=== PATIENT | female | born 1950 | race Caucasian/White ===

== ENCOUNTER → 2016-03-24 | Outpatient (CLI) | payer OTHER ==
[~2016-03-24] MED LIST: CALC600T9 PO; CHOL400T PO; COEN10CA5 PO; GLIP2.5T11 PO; LVQ250 PO; MULT-897 PO; OMEP20CA9 PO; VITA100C2 PO
--- NOTE | 2016-03-24 10:21 | DIAGNOSTIC IMAGING REPORT ---
CHEST 2 VIEWS ROUTINE CLINICAL HISTORY: Cough, dyspnea on exertion. COMPARISON STUDY: 12/10/2014 FINDINGS: There is mild elevation of the right hemidiaphragm. There is no lobar consolidation. There are minor basilar atelectatic changes. There are no pleural effusions. There is upper thoracic scoliosis.[ IMPRESSION: No active disease in the chest. Electronically signed by: Cornell Pyle M.D. 03/24/2016 10:19 AM Dictated Date/Time: 03/24/2016 10:18 AM
[2016-03-24 11:06] LABS: BASO % 0.6 %; BASO ABS # 0.05 K/uL (0-0.2); COMPLETE YES; EOS % 4.7 %; HEMATOCRIT 39.8 % (37-47); IG% 0.1 %; LYMPH % 29.1 %; LYMPH ABS # 2.42 K/uL (1.2-3.4); MEAN CELL VOLUME 89.8 fL (80-100); MEAN CORPUSCULAR HEMOGLOBIN 29.3 pg (25-34); MEAN CORPUSCULAR HGB CONC 32.7 g/dl (32-36); MEAN PLATELET VOLUME 9.7 fL (7.4-10.4); MONO % 7.8 %; NEUT % 57.7 %; PLATELET COUNT 401 K/uL (130-400); RED BLOOD COUNT 4.43 M/uL (4.2-5.4); WHITE BLOOD COUNT 8.31 K/uL (4.8-10.8)
[2016-03-24 11:19] LABS: ESTIMATED AVERAGE GLUCOSE 120 mg/dl; HA1C FLAG Normal (Normal)
[2016-03-24 14:08] LABS: ALT/SGPT 23 U/L (12-78); BLOOD UREA NITROGEN 14 mg/dl (7-18); BUN/CREATININE RATIO 15.4 (10-20); CALCIUM 9.5 mg/dl (8.5-10.1); CARBON DIOXIDE 27 mmol/L (21-32); CHLORIDE 104 mmol/L (98-107); CHOLESTEROL 215 mg/dl (0-200); CREATININE 0.92 mg/dl (0.60-1.20); GLUCOSE 95 mg/dl (70-99); POTASSIUM 4.3 mmol/L (3.5-5.1); SODIUM 140 mmol/L (136-145)
[2016-03-24 14:10] LABS: ALB/GLOB RATIO 0.9 (0.9-2); ALKALINE PHOSPHATASE 96 U/L (45-117); AST/SGOT 16 U/L (15-37); CHOLESTEROL/HDL RATIO 4.1; HDL CHOLESTEROL 52 mg/dl; LDL CHOLESTEROL CALCULATED 128 mg/dl; TRIGLYCERIDES 174 mg/dl (0-150); VERY LOW DENSITY LIPOPROT CALC 35 mg/dl
== END | disposition home or self-care (01) ==
LOC: C.RADBC 09:19
PROVIDERS: ATTEND Internal Medicine Geriatric Medicine
DX: R06.09 Other forms of dyspnea (principal); J45.909 Unspecified asthma, uncomplicated; I10 Essential (primary) hypertension; E11.9 Type 2 diabetes mellitus without complications; K76.0 Fatty (change of) liver, not elsewhere classified; E78.5 Hyperlipidemia, unspecified

== ENCOUNTER → 2016-05-06 | Outpatient (CLI) | payer OTHER ==
[2016-05-06 12:50] LABS: HEMATOCRIT 37.6 % (37-47); MEAN CELL VOLUME 87.9 fL (80-100); MEAN CORPUSCULAR HEMOGLOBIN 28.7 pg (25-34); MEAN CORPUSCULAR HGB CONC 32.7 g/dl (32-36); MEAN PLATELET VOLUME 9.6 fL (7.4-10.4); PLATELET COUNT 355 K/uL (130-400); RED BLOOD COUNT 4.28 M/uL (4.2-5.4); WHITE BLOOD COUNT 8.01 K/uL (4.8-10.8)
[2016-05-06 13:10] LABS: ALT/SGPT 23 U/L (12-78); AST/SGOT 13 U/L (15-37); BLOOD UREA NITROGEN 17 mg/dl (7-18); BUN/CREATININE RATIO 17.6 (10-20); CALCIUM 9.1 mg/dl (8.5-10.1); CARBON DIOXIDE 27 mmol/L (21-32); CHLORIDE 107 mmol/L (98-107); CREATININE 0.96 mg/dl (0.60-1.20); GLUCOSE 98 mg/dl (70-99); POTASSIUM 4.2 mmol/L (3.5-5.1); SODIUM 141 mmol/L (136-145)
[2016-05-06 13:13] LABS: ALB/GLOB RATIO 0.9 (0.9-2); ALKALINE PHOSPHATASE 101 U/L (45-117); CHOLESTEROL 146 mg/dl (0-200); HDL CHOLESTEROL 49 mg/dl; LDL CHOLESTEROL CALCULATED 76 mg/dl; TRIGLYCERIDES 105 mg/dl (0-150); VERY LOW DENSITY LIPOPROT CALC 21 mg/dl
== END | disposition home or self-care (01) ==
LOC: C.LABPBG 08:01
PROVIDERS: ATTEND Internal Medicine Gastroenterology
DX: K76.0 Fatty (change of) liver, not elsewhere classified (principal); E78.5 Hyperlipidemia, unspecified

== ENCOUNTER → 2016-05-17 | Outpatient (CLI) | payer OTHER ==
[2016-05-17 16:55] LABS: INR 0.9 (0.9-1.1)
[2016-05-17 16:57] LABS: PLATELET COUNT 377 K/uL (130-400)
[2016-05-17 17:17] LABS: ALKALINE PHOSPHATASE 111 U/L (45-117); ALT/SGPT 23 U/L (12-78); AST/SGOT 15 U/L (15-37)
--- NOTE | 2016-05-24 12:44 | CODING QUERY MEDICAL NECESSITY ---
SUPPORTING DIAGNOSIS NEEDED A supporting diagnosis is required for the test/procedure performed on this patient in order for us to be reimbursed by the patient's insurance. Please provide a supporting diagnosis for the following test/procedure listed below next to the test name along with your signature. *If there is no additional diagnosis for this patient that would support the following test/procedure please document that below next to the test/procedure. Test(s)/Procedure(s) that require a supporting diagnosis: * VITAMIN D 25-HYDROXY DIAGNOSIS: * DOS: 05/17/16 Provider Signature: Date: Thank you Sima Velarde Health Information Management Once completed, please kindly fax back to [phone] For questions please call [phone]
== END | disposition home or self-care (01) ==
LOC: C.LABBC 15:28
PROVIDERS: ATTEND Internal Medicine Gastroenterology
DX: K76.0 Fatty (change of) liver, not elsewhere classified (principal); Z68.39 Body mass index [BMI] 39.0-39.9, adult; Z13.820 Encounter for screening for osteoporosis

== ENCOUNTER → 2016-09-16 | Outpatient (CLI) | payer OTHER ==
[2016-09-16 12:54] LABS: BASO % 0.5 %; BASO ABS # 0.04 K/uL (0-0.2); COMPLETE YES; EOS % 3.7 %; HEMATOCRIT 37.8 % (37-47); IG% 0.1 %; LYMPH % 26.1 %; LYMPH ABS # 2.14 K/uL (1.2-3.4); MEAN CELL VOLUME 89.8 fL (80-100); MEAN CORPUSCULAR HGB CONC 31.2 g/dl (32-36); MONO % 6.1 %; NEUT % 63.5 %; PLATELET COUNT 373 K/uL (130-400); RED BLOOD COUNT 4.21 M/uL (4.2-5.4); WHITE BLOOD COUNT 8.19 K/uL (4.8-10.8)
[2016-09-16 13:20] LABS: ALT/SGPT 29 U/L (12-78); AST/SGOT 15 U/L (15-37); BLOOD UREA NITROGEN 11 mg/dl (7-18); BUN/CREATININE RATIO 10.3 (10-20); CALCIUM 8.9 mg/dl (8.5-10.1); CARBON DIOXIDE 25 mmol/L (21-32); CHLORIDE 108 mmol/L (98-107); GLUCOSE 131 mg/dl (70-99); POTASSIUM 3.9 mmol/L (3.5-5.1); SODIUM 141 mmol/L (136-145)
[2016-09-16 13:30] LABS: ALB/GLOB RATIO 0.8 (0.9-2); ALKALINE PHOSPHATASE 87 U/L (45-117)
[2016-09-16 13:59] LABS: ESTIMATED AVERAGE GLUCOSE 131 mg/dl; HA1C FLAG Normal (Normal)
== END | disposition home or self-care (01) ==
LOC: C.LABPBG 07:45
PROVIDERS: ATTEND Internal Medicine Geriatric Medicine
DX: I25.10 Atherosclerotic heart disease of native coronary artery without angina pectoris (principal); E78.5 Hyperlipidemia, unspecified; K76.0 Fatty (change of) liver, not elsewhere classified; I10 Essential (primary) hypertension; E04.2 Nontoxic multinodular goiter; E11.9 Type 2 diabetes mellitus without complications; E55.9 Vitamin D deficiency, unspecified

== ENCOUNTER → 2016-10-26 | Outpatient (CLI) | payer OTHER ==
--- NOTE | 2016-10-27 06:50 | PAP/PSG TECHNICIAN REPORT ---
[facility] [place] Drafter Polysomnogram Report Study name: None Report date: 10/27/2016 Study date: 10/26/2016 Referring Physician: Deysi Anthony PA-C Name: ASHLEY MILLER Interpreting Physician: Everardo Hu M.D. Date of : 1950 [place] Drafter: Joyce Bar RPSGT. Sex: Female Age: 65 Study Type: PSG PAP Weight: 237 lbs Height: 65 years, Height 5' 4.25" BMI: 40.36 Medications: VENTOLIN HFA, LISINOPRIL 20 MG, METFORMIN 500 MG, CALCIUM+D3 600-200 MG/UNIT, VIT D 1000 UNIT Patient History 65 yr-old female here for a CPAP update study. She is currently on a pressure of 6 CMH2O. She has been feeling more tired and fatigued during the day. She is back to assess her pressure settings. She stated that her mask leaks and her upper lip gets under the cushion. Tonight, she is trying the same mask but a size smaller. She uses a Mirage FX Soft edge nasal mask but in a size small for the study. The test was started on room air and 4 CMH2O. ETCO2 testing was not utilized during this study. Room 1 Parameters Monitored NPSG: E1-M2, E2-M1, Fp1-M2, Fp2-M1, F3-M2, F4-M2, F4-M1, C3-M2, C4-M2, C4-M1, O1-M2, O2-M2, O2-M1, T3-M2, T4-M1, P3-M2, P4-M1, CHIN1, CHIN2, HR, EKG, Legs, PFLOW, SNOR, FLOW, CFLOW, Tidal Volume, THOR, ABDO, SpO2, PLTH, CPRESS, ETCO2 Wave, ETCO2, pH Sleep Architecture Sleep Stages Time at Lights Off 8:40:23 PM STAGES Time (min.) TST (%) Time at Lights On 5:46:23 AM Wake 156.0 -- Total Recording Time (TRT) 546.00 min. N1 34.5 9 Total Sleep Period (TSP) 532.5 min. N2 247.5 63 Total Sleep Time (TST) 390.0min. N3 35.0 9 Awake Time 156.0 min. REM 73.0 19 Wake after Sleep Onset 142.5 min. Sleep Efficiency (SE) 71 % Sleep Onset Latency (ASHLEY) 13.5 min. Number of Stage 1 Shifts None Awakenings 29 Stage Changes 103 Number of REM periods 4 REM 73.0 19 REM Latency 127.0 min. NREM 317.0 81 Body Position Analysis Supine Right Left Side Prone Vertical Total Sleep Time (min.) 205.3 71.2 190.7 261.90 0.0 0.0 Total Sleep Time (%) 33% 18% 49% 67 0% N/A% Total Sleep Time REM (min.) 31.0 0.0 42.0 None 0.0 0.0 Total Sleep Time NREM (min.) 97.1 71.2 148.7 None 0.0 0.0 Intermittent Wake (min.) 77.2 9.7 69.0 None 0.0 0.0 Total Sleep Period (%) 36% None None None None None Arousals Myoclonus (PLM) * Events Count Index Events Count Index Spontaneous 17 3 Events Awake (PLMW) 203 78.1 Respiratory 2 0.3 Events Asleep w/ Arousal (PLMA) 26 4.0 PLM 25 4 Events Asleep w/o Arousal (PLMS) 183 28.2 Snoring 2 0 Total Asleep 209 32.2 Total 46 7 Total 412 45 Respiratory Analysis * CA OA MA CH H RERA Total Count 0 0 0 0 12 0 12 Index 0.0 0.0 0.0 0 1.8 0 1.8 Mean Duration 0.0 0.0 0.0 0.00 18.5 0.0 18.5 Longest Duration 0.0 0.0 0.0 0.00 0.0 0.0 24.3 Respiratory Event Summary Total Supine ~Supine Right Left Prone REM NREM Apneas Count 0 0 0 0 0 N/A 0 0 Index 0.0 0 0 0.0 0.0 N/A 0 0 Hypopneas (4% Desat) Count 12 11 1 1 0 N/A 11 1 Index 1.8 5.2 0 0.8 0.0 N/A 9.0 0.2 Apneas & All Hypopneas Count 12 11 1 1 0 N/A 11 1 Index 1.8 5 0 1 0 N/A 9.0 0.2 Respiratory Events (Per Diem Rn+All Hyp+RERA) Count 12 11 1 1 0 N/A 11 1 Index 1.8 5 0 0.8 0.0 N/A 9.0 0.2 Respiratory Related Arousal Count 2 11 0 0 0 N/A 2 0 Index 0.3 1 0 0 0 N/A 2 0 Snoring Analysis Supine Right Left Prone REM NREM Total Snore duration 3.7 min Snores count 41 160 9 N/A 6 204 210 Snore mean duration 1.1 Sec Snores index 19 135 3 N/A 4.9 38.6 32.3 TST with snoring (%) 1.0% Desaturation Event Summary: Minimum %SpO2 Event Count Mean/Min/Max Duration(sec.) Desaturation Index % Time In Bed > 90 16 22.6 / 11.0 / 60.0 2.1 84.8 86 - 90 7 17.0 / 11.0 / 29.3 5.1 15.2 81 - 85 0 N/A 0.0 0.0 76 - 80 0 N/A 0.0 0.0 71 - 75 0 N/A 0.0 0.0 66 - 70 0 N/A 0.0 0.0 61 - 65 0 N/A 0.0 0.0 56 - 60 0 N/A 0.0 0.0 51 - 55 0 N/A 0.0 0.0 < 50 0 N/A 0.0 0.0 Total REM NREM Awake <50% 0.0 min. 0.0 min. 0.0 min. 0.0 min. 51 - 60% 0.0 min. 0.0 min. 0.0 min. 0.0 min. 61 - 70% 0.0 min. 0.0 min. 0.0 min. 0.0 min. 71 - 80% 0.0 min. 0.0 min. 0.0 min. 0.0 min. 81 - 90% 82.0 min. 18.4 min. 56.5 min. 7.2 min. 91 - 100% 458.4 min. 54.6 min. 260.5 min. 143.4 min. Average 92 91 91 92 Minimum SpO2 85 85 87 88 Desaturation Event Index 1.8 8.2 0.4 1.5 # Desat. Events below 89% 10 10 N/A 0 Time(%) with Saturation below 89% 0.6 0.5 0.1 0.0 Time(min.) with Saturation below 89% 3.0 2.5 0.4 0.1 Time (mins) REM (mins) NREM (mins) % of TST SpO2 Below 90% 11 10 N1 2.8 SpO2 Below 88% 3 0 0 0 Heart Rate Analysis Min (bpm) Max (bpm) Average (bpm) Awake 53 127 67 NREM 51 82 62 REM 53 77 63 Overall 51 82 62 Supplemental O2 Values Minimum O2 level: None Value Start Time End Time [place] Drafter Comments Ms. Miller slept in the right, left, and supine positions. No cardiac arrhythmias were noted. PLMs were noted. No bruxism noted. CPAP was initiated at +4 CMH2O and up-titrated to a level of +6 CMH2O, Cflex 2 which nearly eliminated all respiratory events and snoring. A Mirage FX Soft edge nasal mask size small from [employer] was used during titration. This is a size smaller than her current standard size Mirage FX. She awoke to use the restroom one time during the night. Ms. Miller stated that she slept about the same as usual. The final report will be interpreted and signed by a sleep physician. The completed physician report will then be placed in the patient medical record. Therapy Event: Therapy (cm H20) 4 6 Total Time at Pressure (min.) 191.0 355.0 TST at Pressure (min.) 141.0 249.0 # Periods 1 1 Sleep Onset (min.) 13.5 0.0 REM Onset (min.) 140.5 136.0 Sleep Efficiency % 73 70 Wakefulness (%) 26.2 29.9 Wakefulness (min.) 50.0 106.0 NREM 1 (%) 5.8 6.6 NREM 1 (min.) 11.0 23.5 NREM 2 (%) 43.4 46.3 NREM 2 (min.) 83.0 164.5 NREM 3 (%) 9.9 4.5 NREM 3 (min.) 19.0 16.0 REM (%) 14.7 12.7 REM (min.) 28.0 45.0 # Arousals 14 32 Arousal Index 6.0 7.7 # Snore 34 176 Snore Index 14.5 42.4 AHI 3.8 0.7 AHI Supine 6.0 3.1 AHI Non-Supine 0.0 0.3 NREM AHI 0.0 0.3 REM AHI 19.3 2.7 RDI 3.8 0.7 # Obstructive 0 0 # Central Ap 0 0 # Mixed 0 0 # Hypopneas 9 3 RERAS 0 0 Total Respiratory Events 9 3 Time Below SpO2 89.00% (min.) 2.9 0.0 Mean NREM SpO2 (%) 91 92 Mean REM SpO2 (%) 90 92 Mean Sleep SpO2 (%) 91 92 Min NREM SpO2 (%) 87 89 Min REM SpO2 (%) 85 89 Position Supine (min.) 89.5 38.6 Position Non-supine (min.) 51.5 210.4 LM Index Sleep 50.6 21.7 LM Index NREM 61.6 25.0 LM Index REM 6.4 6.7 Mean Heart Rate (bpm) 67 59 Min Heart Rate (bpm) 60 51
--- NOTE | 2016-10-27 13:22 | POLYSOMNOGRAPH REPORT ---
CLINICAL DATA: A 65-year-old female with a BMI of 40.4, referred by Deysi Anthony PA-C and Dr. George for a CPAP titration update. She is currently on CPAP 6 cm of water pressure, but has been feeling more tired and fatigued during the day. She states that her mask leaks and her upper lip gets under the cushion. She uses a Mirage FX soft edge nasal mask. SLEEP ARCHITECTURE: Total recording time was 546 minutes. Total sleep period was 532.5 minutes. Total sleep time was 390 minutes, divided between 317 minutes of non-REM sleep and 73 minutes of REM sleep. Sleep onset latency was 13.5 minutes. REM latency was 127 minutes. Sleep efficiency was 71%. Wake after sleep onset was 142.5 minutes. Sleep consisted of stage N1 9%, stage N2 63%, stage N3 9%, and REM 19%. AROUSAL DATA: 46 arousals were recorded for an index of 7 per hour. 25 were due to PLMs. PLM DATA: Moderate PLMD was seen. There were 209 limb movements during sleep noted for an index of 32.2 per hour with arousal index of 4 per hour. RESPIRATORY DATA: The AHI was 1.8. There were 12 hypopneic episodes with mean duration of 18.5 seconds. OXIMETRY DATA: Transient hypoxemia seen. Oxygen rose mary was 85%. Mean saturation was 92%. Time below 88% was 3 minutes. EKG: Heart rates ranged from 51-82 beats per minute. No arrhythmias were noted. USER EXPERIENCE RESEARCHER'S COMMENTS: The patient slept in the right, left, and supine positions. No cardiac arrhythmias were noted. No bruxism was noted. She was started on CPAP and titrated up to final pressure setting of 6 cm of water pressure, C-Flex setting 2. At her final pressure setting, she slept for 249 minutes with an AHI of 0.7. She did use a Mirage FX soft edge nasal mask size small from [employer], which is smaller than her current standard size Mirage FX. She did better with the smaller mask. She did have frequent PLMs which caused arousal through the night. IMPRESSION: 1. Obstructive sleep apnea corrected with CPAP 6 cm of water pressure, C-Flex setting #2, utilizing a Mirage FX soft edge nasal mask size small from [employer]. 2. Moderate periodic limb movement disorder, possibly causing sleep disruption. RECOMMENDATIONS: The patient should be continued on CPAP at the above noted settings with the above noted interface. Evaluation for possible causes for PLMD and possible treatment may be of benefit if felt to be clinically significant. MTDD
== END | disposition home or self-care (01) ==
LOC: C.NEUR 20:00
PROVIDERS: ATTEND Internal Medicine Geriatric Medicine
DX: G47.33 Obstructive sleep apnea (adult) (pediatric) (principal)

== ENCOUNTER → 2017-03-15 | Outpatient (CLI) | payer OTHER ==
[2017-03-15 12:57] LABS: HEMOGLOBIN A1C 5.8 % (4.5-5.6)
[2017-03-15 12:58] LABS: ALBUMIN 3.9 gm/dl (3.4-5.0); ALKALINE PHOSPHATASE 90 U/L (45-117); ALT/SGPT 29 U/L (12-78); AST/SGOT 18 U/L (15-37); BLOOD UREA NITROGEN 15 mg/dl (7-18); CALCIUM 9.4 mg/dl (8.5-10.1); CARBON DIOXIDE 28 mmol/L (21-32); CHOLESTEROL 197 mg/dl (0-200); CREATININE 0.98 mg/dl (0.60-1.20); GLUCOSE 94 mg/dl (70-99); LDL CHOLESTEROL CALCULATED 121 mg/dl; POTASSIUM 4.2 mmol/L (3.5-5.1); SODIUM 137 mmol/L (136-145); TOTAL PROTEIN 7.6 gm/dl (6.4-8.2)
== END | disposition home or self-care (01) ==
LOC: C.LABPBG 07:24
PROVIDERS: ATTEND Internal Medicine Geriatric Medicine
DX: E55.9 Vitamin D deficiency, unspecified (principal); I10 Essential (primary) hypertension; E11.9 Type 2 diabetes mellitus without complications; K76.0 Fatty (change of) liver, not elsewhere classified; E78.5 Hyperlipidemia, unspecified

== ENCOUNTER → 2017-04-26 | Outpatient (CLI) | payer OTHER | END | disposition home or self-care (01) | LOC: C.MAMM 14:25 | PROVIDERS: ATTEND Family Medicine | DX: Z78.0 Asymptomatic menopausal state (principal); M85.88 Other specified disorders of bone density and structure, other site; M85.851 Other specified disorders of bone density and structure, right thigh; M85.852 Other specified disorders of bone density and structure, left thigh ==

== ENCOUNTER 2017-10-18 16:16 | Emergency (ER) | payer OTHER ==
[~2017-10-18] VITALS: Ht 165.1 cm; Wt 106.3 kg
[~2017-10-18 16:16] MED LIST changes: -MULT-897 PO
[2017-10-18 16:22] VITALS: TEMP 36.7; Ht 165.1 cm; Wt 106.3 kg
[2017-10-18] MEDS ORDERED: SODIUM CHLORIDE 0.9% 500ML 500 ML IV STA (16:59)
[2017-10-18] MEDS ORDERED: GI COCKTAIL PO STA (17:05)
[2017-10-18 17:14] VITALS: O2SAT 97
[2017-10-18] MEDS ORDERED: FAMOTIDINE 20 MG TAB PO ONE (17:15)
[2017-10-18 17:24] LABS: BASO % 0.3 %; BASO ABS # 0.03 K/uL (0-0.2); EOS ABS # 0.29 K/uL (0-0.5); HEMATOCRIT 38.8 % (37-47); HEMOGLOBIN 12.2 g/dL (12.0-16.0); IG# 0.01 K/uL (0.00-0.02); LYMPH % 29.6 %; LYMPH ABS # 2.87 K/uL (1.2-3.4); MEAN CELL VOLUME 88.4 fL (80-100); MEAN CORPUSCULAR HEMOGLOBIN 27.8 pg (25-34); MEAN CORPUSCULAR HGB CONC 31.4 g/dl (32-36); MEAN PLATELET VOLUME 9.6 fL (7.4-10.4); MONO % 5.9 %; MONO ABS # 0.57 K/uL (0.11-0.59); NEUT % 61.1 %; NEUT ABS # 5.93 K/uL (1.4-6.5); PLATELET COUNT 363 K/uL (130-400); RED CELL DISTRIBUTION WIDTH CV 14.8 % (11.5-14.5); RED CELL DISTRIBUTION WIDTH SD 47.5 fL (36.4-46.3)
[2017-10-18] MEDS ORDERED: ALUMINUM/MAGNESIUM SUSP 30 ML UDC ONE (17:26)
[2017-10-18] MEDS ORDERED: LIDOCAINE HCL 2% VISC SOLN 20 ML UDC ONE (17:26)
[2017-10-18] MEDS ORDERED: LISI-725 PO (17:29)
[2017-10-18] MEDS ORDERED: CALC-354 PO (17:29)
[2017-10-18] MEDS ORDERED: METF1TAB85 PO (17:29)
--- NOTE | 2017-10-18 17:31 | EMERGENCY ROOM VISIT NOTE ---
History Report prepared by Bryan: Scott Ruelas Under the Supervision of: Dr. Flaquito Story M.D. First contact with patient: 16:57 Chief Complaint: CHEST PAIN Stated Complaint: CHEST PAINS Nursing Triage Summary: Patient ambulatory to triage with an upright and steady gait, states "Around 0800 this morning, I started having dizziness and feeling like something was sitting on the center of my chest. I have some pressure in the left shoulder blade as well. I got really cold. My house was really hot though. I can't take ASA because I am allergic to it. I waited all day to come." History of Present Illness The patient is a 66 year old female who presents to the Emergency Room with complaints of constant chest discomfort in the sternal region beginning this morning at 8 AM. The patient reports that she was cooking at this time. She states that she is "not short of breath, but it is hard to breathe." She describes the discomfort as if somebody is sitting on her. She states that the discomfort stays in the same place. She denies nausea. The patient reports that her symptoms have improved from this morning. She notes a history of these symptoms, stating that the last episode was months ago. She notes that she never came for evaluation. She reports a history of reflux, but notes that her current symptoms feel different. She denies a history of heart attack, but states that her uncle had a heart attack in his 50s. She states that she does not take blood thinners and does not smoke. She denies a history of cancer. She notes that she takes Metformin for diabetes. The patient denies recent travel or surgeries. Source of History: patient Onset: 8 AM this morning Position: chest Quality: other (as if "someone is sitting on top of her") Timing: constant Associated Symptoms: No nausea Review of Systems See HPI for pertinent positives and negatives. A total of ten systems were reviewed and were otherwise negative. Past Medical & Surgical Medical Problems: (1) Asthma (2) Bronchitis (3) GERD (gastroesophageal reflux disease) (4) Hypertension Family History Heart attack Hypertension Social History Smoking Status: Never Smoker Alcohol Use: none Drug Use: none Marital Status: Housing Status: lives with family Occupation Status: employed Current/Historical Medications Scheduled Calcium Carbonate-Cholecalcife (Caltrate 600+D), 1 TAB PO DAILY Famotidine (Pepcid), 20 MG PO BID Lisinopril (Zestril), 20 MG PO QPM Metformin Hcl (Metformin Hcl Er), 500 MG PO DAILY Multiple Vitamin (One Daily), 1 TAB PO DAILY Allergies Coded Allergies: Aspirin (Unverified Allergy, Severe, "CAN'T BREATHE", 12/08/14) Amoxicillin (Verified Allergy, Unknown, Unknown, 10/18/17) PT cannot remember the reaction Clavulanic Acid (Verified Allergy, Unknown, Unknown, 10/18/17) PT cannot remember the reaction Physical Exam Vital Signs Date Time Temp Pulse Resp B/P (MAP) Pulse Ox O2 Delivery O2 Flow Rate FiO2 10/18/17 19:27 75 118/83 96 10/18/17 19:00 126/79 10/18/17 18:58 70 15 96 10/18/17 18:31 121/75 10/18/17 18:28 71 14 99 10/18/17 18:00 120/75 10/18/17 17:57 78 16 94 10/18/17 17:42 74 10/18/17 17:32 80 23 119/80 94 10/18/17 17:21 66 15 123/80 97 Room Air 10/18/17 17:14 97 Room Air 10/18/17 16:22 36.7 81 20 144/76 97 Room Air 10/18/17 16:22 97 Room Air Physical Exam GENERAL: Awake, alert, in no distress HENT: Normocephalic, atraumatic. Mucous membranes are dry. EYES: Normal conjunctiva. Sclera non-icteric. NECK: Supple. No nuchal rigidity. FROM. No JVD. RESPIRATORY: Clear to auscultation. CARDIAC: Regular rate, normal rhythm. Extremities warm and well perfused. Pulses equal. ABDOMEN: Soft, non-distended. Mild epigastric discomfort without discrete tenderness. No rebound or guarding. No masses. RECTAL: Deferred. MUSCULOSKELETAL: Chest examination reveals no tenderness. The back is symmetrical on inspection without obvious abnormality. There is no CVA tenderness to palpation. No joint edema. LOWER EXTREMITIES: Calves are equal size bilaterally and non-tender. No edema. No discoloration. NEURO: Normal sensorium. No sensory or motor deficits noted. SKIN: No rash or jaundice noted. Medical Decision & Procedures ER Provider Diagnostic Interpretation: Radiology results as stated below per my review and radiologist interpretation: CHEST ONE VIEW PORTABLE CLINICAL HISTORY: 66 years-old Female presenting with CHEST PAIN. TECHNIQUE: Portable upright AP view of the chest was obtained. COMPARISON: 03/24/2016. FINDINGS: Cardiomediastinal silhouette normal. Chronic elevation of the right hemidiaphragm. Bandlike opacity in the left midlung. No focal opacity. No large effusion or pneumothorax. Osseous structures normal. Upper abdomen normal. IMPRESSION: 1. Limited atelectasis or scarring in the left midlung. Otherwise no acute cardiopulmonary disease. Electronically signed by: Leonard Gauthier M.D. 10/18/2017 6:02 PM Dictated Date/Time: 10/18/2017 6:01 PM Laboratory Results 10/18/17 17:10 Red Blood Count 4.39, Mean Corpuscular Volume 88.4, Mean Corpuscular Hemoglobin 27.8, Mean Corpuscular Hemoglobin Concent 31.4, Mean Platelet Volume 9.6, Neutrophils (%) (Auto) 61.1, Lymphocytes (%) (Auto) 29.6, Monocytes (%) (Auto) 5.9, Eosinophils (%) (Auto) 3.0, Basophils (%) (Auto) 0.3, Neutrophils # (Auto) 5.93, Lymphocytes # (Auto) 2.87, Monocytes # (Auto) 0.57, Eosinophils # (Auto) 0.29, Basophils # (Auto) 0.03 10/18/17 17:10 Test 10/18/17 17:10 White Blood Count 9.70 K/uL (4.8-10.8) Red Blood Count 4.39 M/uL (4.2-5.4) Hemoglobin 12.2 g/dL (12.0-16.0) Hematocrit 38.8 % (37-47) Mean Corpuscular Volume 88.4 fL (80-100) Mean Corpuscular Hemoglobin 27.8 pg (25-34) Mean Corpuscular Hemoglobin Concent 31.4 g/dl (32-36) Platelet Count 363 K/uL (130-400) Mean Platelet Volume 9.6 fL (7.4-10.4) Neutrophils (%) (Auto) 61.1 % Lymphocytes (%) (Auto) 29.6 % Monocytes (%) (Auto) 5.9 % Eosinophils (%) (Auto) 3.0 % Basophils (%) (Auto) 0.3 % Neutrophils # (Auto) 5.93 K/uL (1.4-6.5) Lymphocytes # (Auto) 2.87 K/uL (1.2-3.4) Monocytes # (Auto) 0.57 K/uL (0.11-0.59) Eosinophils # (Auto) 0.29 K/uL (0-0.5) Basophils # (Auto) 0.03 K/uL (0-0.2) RDW Standard Deviation 47.5 fL (36.4-46.3) RDW Coefficient of Variation 14.8 % (11.5-14.5) Immature Granulocyte % (Auto) 0.1 % Immature Granulocyte # (Auto) 0.01 K/uL (0.00-0.02) Anion Gap 8.0 mmol/L (3-11) Est Creatinine Clear Calc Drug Dose 65.1 ml/min Estimated GFR () 65.6 Estimated GFR (Non- 56.6 BUN/Creatinine Ratio 13.7 (10-20) Calcium Level 9.2 mg/dl (8.5-10.1) Magnesium Level 2.0 mg/dl (1.8-2.4) Total Bilirubin 0.4 mg/dl (0.2-1) Direct Bilirubin 0.1 mg/dl (0-0.2) Aspartate Amino Transf (AST/SGOT) 16 U/L (15-37) Alanine Aminotransferase (ALT/SGPT) 32 U/L (12-78) Alkaline Phosphatase 101 U/L (45-117) Troponin I < 0.015 ng/ml (0-0.045) Total Protein 8.1 gm/dl (6.4-8.2) Albumin 3.7 gm/dl (3.4-5.0) Lipase 124 U/L (73-393) Laboratory results reviewed by me Medications Administered Medications (Trade) Dose Ordered Sig/Gina Route Start Time Stop Time Status Last Admin Dose Admin Sodium Chloride 500 ml @ 999 mls/hr Q31M STAT IV 10/18/17 16:59 10/18/17 17:29 DC 10/18/17 17:24 999 MLS/HR Famotidine (Pepcid Tab) 20 mg NOW ONCE PO 8/7/18 17:15 10/18/17 17:16 DC 10/18/17 17:28 20 MG Lidocaine HCl (Viscous Lidocaine 2% Soln) 20 ml STK-MED ONCE .ROUTE 10/18/17 17:26 10/18/17 17:27 DC 10/18/17 17:28 10 ML Al Hydroxide/Mg Hydroxide (Maalox Susp) 30 ml STK-MED ONCE .ROUTE 10/18/17 17:26 10/18/17 17:27 DC 10/18/17 17:28 30 ML ECG Per My Interpretation Indication: chest pain Rate (beats per minute): 83 Rhythm: sinus rhythm Findings: no acute ischemic change, other (normal axis. Incomplete RBBB.) ED Course 1657: The patient was evaluated in room C12B. A complete history and physical exam was performed. 1835: I reevaluated the patient, who is feeling better. Discussed results and discharge instructions: she verbalized understanding and agreement. The patient is ready for discharge. Medical Decision I reviewed the patient's past medical history, medications, and the nursing notes as described above. Differential diagnosis: Etiologies such as cardiac ischemia, aortic dissection, pulmonary embolism, pneumonia, pneumothorax, musculoskeletal, infections, pericarditis, myocarditis , esophageal rupture, gastrointestinal, as well as others were entertained. The patient is a 66-year-old woman with a past medical history of diabetes who presents emergency department with substernal chest pain that feels like a pressure with associated hardness to breathe but denied shortness of breath since 9 AM this morning that has been constant per hpi. On arrival the patient is no acute distress, afebrile stable vital signs. On exam the patient has mild epigastric discomfort without discrete tenderness. EKG is unremarkable with incomplete right bundle branch block otherwise no acute ischemia. WBC within normal limits. Chemistry unremarkable. Troponin negative in setting of greater than 6 hours of constant symptoms making ACS unlikely. Chest x-ray negative. No tachycardia or hypoxia making PE not likely. Not positional making pericarditis unlikely. Denies any tearing pain and has equal pulses making dissection unlikely. Patient with complete resolution of symptoms after Pepcid and GI cocktail. The patient's history of reflux symptoms likely related to the same versus gastritis/esophagitis. Plan for PCP follow-up. Findings and plan for follow-up reviewed with patient. Patient agreeable and d/c 'd per discharge instructions. Medication Reconcilliation Current Medication List: was personally reviewed by me Blood Pressure Screening Patient's blood pressure: Normal blood pressure Blood pressure disposition: Did not require urgent referral Impression Primary Impression: Substernal precordial chest pain Additional Impression: Chest pain due to GERD Scribe Attestation The scribe's documentation has been prepared under my direction and personally reviewed by me in its entirety. I confirm that the note above accurately reflects all work, treatment, procedures, and medical decision making performed by me. Departure Information Dispostion Home / Self-Care Prescriptions Famotidine (PEPCID) 20 Mg Tab 20 MG PO BID for 7 Days, #14 TAB Prov: Flaquito Story M.D. 10/18/17 Referrals Sarahi Laguna DO (PCP) Forms Call Back Authorization, HOME CARE DOCUMENTATION FORM, IMPORTANT VISIT INFORMATION Patient Instructions ED Chest Pain Atypical Unkn Cause, ED GERD, ED Gastritis, [facility] Additional Instructions Please follow up with your primary care physician in the next 1-3 days for re- evaluation. Your symptoms today are most likely related to acid reflux or possible gastritis /esophagitis. Otherwise, your exam, EKG, chest xray, and lab results did not show signs of an emergent condition at this time. Pepcid as directed for recurrence of symptoms/GI upset/acid reduction. Mylanta or Tums for additional acid relief. Drink plenty of fluids to ensure hydration. Return to the emergency department for worsening symptoms as described in the accompanying instructions. Problem Qualifiers
[2017-10-18 17:55] LABS: ALBUMIN 3.7 gm/dl (3.4-5.0); ALKALINE PHOSPHATASE 101 U/L (45-117); ALT/SGPT 32 U/L (12-78); AST/SGOT 16 U/L (15-37); BLOOD UREA NITROGEN 14 mg/dl (7-18); CALCIUM 9.2 mg/dl (8.5-10.1); CARBON DIOXIDE 26 mmol/L (21-32); CREATININE 1.03 mg/dl (0.60-1.20); GLUCOSE 117 mg/dl (70-99); LIPASE 124 U/L (73-393); SODIUM 138 mmol/L (136-145); TOTAL PROTEIN 8.1 gm/dl (6.4-8.2)
--- NOTE | 2017-10-18 18:03 | DIAGNOSTIC IMAGING REPORT ---
CHEST ONE VIEW PORTABLE CLINICAL HISTORY: 66 years-old Female presenting with CHEST PAIN. TECHNIQUE: Portable upright AP view of the chest was obtained. COMPARISON: 03/24/2016. FINDINGS: Cardiomediastinal silhouette normal. Chronic elevation of the right hemidiaphragm. Bandlike opacity in the left midlung. No focal opacity. No large effusion or pneumothorax. Osseous structures normal. Upper abdomen normal. IMPRESSION: 1. Limited atelectasis or scarring in the left midlung. Otherwise no acute cardiopulmonary disease. Electronically signed by: Leonard Gauthier M.D. 10/18/2017 6:02 PM Dictated Date/Time: 10/18/2017 6:01 PM
[2017-10-18] MEDS ORDERED: FAMO20TA9 PO (18:37)
[2017-10-18 19:27] VITALS: BP 118/83; PULSE 75; O2SAT 96
[2017-10-18] MEDS ORDERED: MULT-897 PO (19:48)
== END 2017-10-18 19:24 | disposition home or self-care (01) ==
LOC: C.EDB 16:18 → C.EDC 19:24
DX: K21.9 Gastro-esophageal reflux disease without esophagitis (principal); E11.9 Type 2 diabetes mellitus without complications; J45.909 Unspecified asthma, uncomplicated; I10 Essential (primary) hypertension; Z82.49 Family history of ischemic heart disease and other diseases of the circulatory system; Z79.899 Other long term (current) drug therapy; Z88.2 Allergy status to sulfonamides; Z88.1 Allergy status to other antibiotic agents; Z88.8 Allergy status to other drugs, medicaments and biological substances

== ENCOUNTER 2019-03-15 10:34 | Inpatient (IN) ==
[2019-03-15] MEDS ORDERED: MAGNESIUM SULFATE / D5W 1 GM/100 ML BAG IV ONE (10:51)
[2019-03-15] MEDS ORDERED: ALBUT/IPRATROP 3MG/0.5MG NEB 3 ML VIAL INH STA (10:51)
[2019-03-15] MEDS ORDERED: methylPREDNISolone 125 MG/2 ML VIAL IV STA (10:53)
[2019-03-15 11:43] LABS: Basophils # (auto) 0.03 K/uL (0-0.2); Basophils % (auto) 0.2 %; Eosinophils # (auto) 0.03 K/uL (0-0.5); Eosinophils % (auto) 0.2 %; Hematocrit (blood only) 39.1 % (37-47); Hemoglobin 12.1 g/dL (12.0-16.0); Immature Granulocytes # (auto) 0.04 K/uL (0.00-0.02); Immature Granulocytes % (auto) 0.3 %; Lymphocytes # (auto) 1.38 K/uL (1.2-3.4); Lymphocytes % (auto) 9.7 %; Mean Corpuscular Hemoglobin 27.8 pg (25-34); Mean Corpuscular Hgb Conc 30.9 g/dL (32-36); Mean Corpuscular Volume 89.9 fL (80-100); Mean Platelet Volume 9.1 fL (7.4-10.4); Monocytes # (auto) 1.14 K/uL (0.11-0.59); Neutrophils # (auto) 11.64 K/uL (1.4-6.5); Neutrophils % (auto) 81.6 %; Platelet Count 409 K/uL (130-400); RDW Coefficient of Variation 15.1 % (11.5-14.5); Red Blood Count 4.35 M/uL (4.2-5.4); White Blood Count 14.26 K/uL (4.8-10.8)
[2019-03-15 11:53] LABS: Partial Thromboplastin Ratio 0.8; Partial Thromboplastin Time 21.7 Seconds (21.0-31.0); Prothrombin Time 9.8 Seconds (9.0-12.0)
[2019-03-15 11:54] LABS: Alanine Aminotransferase 39 U/L (12-78); Albumin Level 3.7 gm/dl (3.4-5.0); Aspartate Aminotransferase 24 U/L (15-37); BUN Creatinine Ratio 14.4 (10-20); Blood Urea Nitrogen 17 mg/dl (7-18); Calcium 9.5 mg/dl (8.5-10.1); Carbon Dioxide 26 mmol/L (21-32); Chloride 103 mmol/L (98-107); Creatinine Clr Calc Pharmacy 53.9 ml/min; Est GFR (African American) 55.4; Est GFR (Non-African American) 47.8; Glucose 151 mg/dl (70-99); Potassium 3.6 mmol/L (3.5-5.1); Sodium 138 mmol/L (136-145)
[2019-03-15 11:59] LABS: Albumin Globulin Ratio 0.8 (0.9-2); Alkaline Phosphatase 93 U/L (45-117); Bilirubin,Total 0.4 mg/dl (0.2-1); Globulin 4.6 gm/dl (2.5-4.0); Total Protein 8.3 gm/dl (6.4-8.2); Troponin I < 0.015 ng/ml (0-0.045)
--- NOTE | 2019-03-15 13:57 | XRay Report ---
XR chest 2V PA/lateral CLINICAL HISTORY: Cough. Evaluate for pneumonia. COMPARISON STUDY: Chest radiograph March 02, 2019. FINDINGS: Mild left lung airspace opacities have developed. There is no pneumothorax or pleural effus ion. There is no evidence for pulmonary edema. Cardiomediastinal silhouette is stable. IMPRESSION: Interval development of mild left lung airspace opacities which favor an infectious proc ess. ACT 112: Negative or not required by law. Electronically signed by: Romeo Almendarez M.D. 03/15/2019 1:55 PM
[2019-03-15] MEDS ORDERED: LEVOFLOXACIN/D5W 750 MG/150 ML BAG IV STA (14:05)
--- NOTE | 2019-03-15 17:34 | Emergency Department Note ---
Entered by Danii Lambert acting as a scribe for Kehinde Vincent MD History of Present Illness General Chief complaint: Shortness of Breath/Dyspnea Stated complaint: SOB,COUGH Time Seen by Provider: 03/15/19 10:45 Source: patient History of Present Illness Onset (ago): day(s) 5 Location: chest Pain Consistency: + other (persistent) Maximum Pain Intensity: 0 Quality: + other (shortness of breath) Relieved By: not by medication (doxycycline; steroids; nebulizer) Associated symptoms: + cough (productive with yellow phlegm) and + other (positive chest and back soreness); no fever/chills and no nausea/vomiting Treatments prior to arrival: other (doxycycline; steroids; nebulizer treatments) The patient is a 68 year old female who presents to the Emergency Room with complaints of persistent shortness of breath that began 5 days prior to arrival. She reports a productive cough with yellow phlegm. She denies fever, nausea, and vomiting. The patient states that she has chest and back soreness from coughing. The patient states that she was seen in the ED on 03/10/19 for this and was diagnosed with bronchitis. She states that she saw primary care and was given doxycycline and steroids but states that her symptoms have not improved since this time. The patient states that she again saw primary care today and was given a nebulizer treatment that did not relieve her symptoms. She states that she has a history of asthma. Home Medications Home Medications Medication Instructions Recorded Confirmed Type calcium carbonate 600 mg (1,500 1 tab PO QAM tab 07/21/18 03/15/19 History mg)-vitamin D3 200 unit tablet cholecalciferol (vitamin D3) 25 1,000 unit PO HS cap 08/18/18 03/15/19 History mcg (1,000 unit) capsule lisinopril 20 mg PO HS 08/25/18 03/15/19 History multivitamin 1 tab PO QAM 08/25/18 03/15/19 History metformin 500 mg tablet,extended 500 mg PO BID #180 tab 12/15/18 03/15/19 Rx release 24 hr benzonatate 200 mg capsule 200 mg PO TID PRN #21 cap 03/12/19 03/15/19 Rx atorvastatin 10 mg PO MOWEFR@2100 03/15/19 03/15/19 History doxycycline monohydrate 100 mg 100 mg PO BID #14 cap 03/15/19 03/15/19 Rx capsule prednisone 10 mg PO QID 03/15/19 03/15/19 History Allergies Allergy/AdvReac Type Severity Reaction Status Date / Time aspirin Allergy Severe "CAN'T Verified 03/15/19 11:57 BREATHE" amoxicillin Allergy Unknown Unknown Verified 03/15/19 11:57 clavulanic acid Allergy Unknown Unknown Verified 03/15/19 11:57 Past Med/Surg History Medical History Anemia (Chronic) reports reason for colonoscopy Ascites (Acute) Blood in stool Coronary artery calcification (Acute) Diverticulosis 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 Dyslipidemia (Acute) GERD (gastroesophageal reflux disease) Hepatic steatosis (Chronic) Hypertension Incomplete right bundle branch block (Chronic) Intractable abdominal pain (Acute) Mild obstructive sleep apnea Morbid obesity (Chronic) Overflow diarrhea Periodic limb movement disorder (PLMD) (Chronic) Polyneuropathy (Chronic) Type 2 diabetes mellitus (Chronic) NIDDM Vitamin D deficiency (Chronic) Surgical History H/O blepharoplasty H/O foot surgery secondary to plantar fascitis H/O rectocele repair History of anesthesia reaction reports sob after previous colonoscopy - had to go to ER - > 10 years ago @ [facility] - cause? denies aspiration History of colonoscopy w/ polypectomy Nausea and vomiting after administration of anesthetic agent Family History Aunt Family history of reaction to anesthesia PONV Breast cancer Grandfather (Paternal) Family history of diabetes mellitus Brother Family history of diabetes mellitus Uncle Myocardial infarction Father COPD (chronic obstructive pulmonary disease) Mother Parkinson disease Social History Preferred Language: Czech Communication Ability: Effective Visual Impairment: No Limitations Hearing Ability: Normal Post Acute Care Nurse Required: No Beliefs That Will Affect Care: None marital status: Current Living Situation: Spouse current occupational status: employed current occupation: [employer] Other Information That Helps Us Care for You: No Feels Safe at Home: Yes Safety Concerns: Feels Safe At This Time Smoking Status: Never smoker Second Hand Exposure: Yes ( A CHILD) ; Hx Alcohol Use: No Hx Substance Use: No Childhood Exposure to Second-Hand Smoke: Yes caffeine: Yes Dental Care, Regularly: Yes Physical Activity Frequency: 5-6 Times per Week Physical Activity Frequency Comment: walk Seatbelt Use: always Sunscreen Use: No Review of Systems See HPI for pertinent positives & negatives. and A total of 10 systems reviewed and were otherwise negative Physical Exam Vital Signs Vital Signs - 24 hr 03/15/19 10:38 03/15/19 11:22 03/15/19 11:33 Temperature 36.8 C Temperature Source Oral Pulse Rate 98 H Pulse Rate [Right Finger] 68 Pulse Rate from SpO2 Sensor Respiratory Rate 20 19 Respiratory Effort / Characteristics Non-Labored Spontaneous Blood Pressure 189/99 H Blood Pressure Mean 129 Pulse Oximetry 96 91 98 Oxygen Delivery Method Room Air Room Air Nebulizer Oxygen Flow Rate Sepsis Recent Fever Within 48 Hours No Sepsis New/Unexplained Change in Mental Status No Sepsis Action Taken by Nursing No Action Required 03/15/19 11:39 03/15/19 11:50 03/15/19 12:00 Temperature Temperature Source Pulse Rate 88 93 H 103 H Pulse Rate [Right Finger] Pulse Rate from SpO2 Sensor 90 93 H 103 H Respiratory Rate 24 16 19 Respiratory Effort / Characteristics Blood Pressure 157/86 H Blood Pressure Mean 103 Pulse Oximetry 99 98 99 Oxygen Delivery Method Nebulizer Oxygen Flow Rate Sepsis Recent Fever Within 48 Hours Sepsis New/Unexplained Change in Mental Status Sepsis Action Taken by Nursing 03/15/19 12:30 03/15/19 12:31 03/15/19 12:32 Temperature Temperature Source Pulse Rate 122 H 117 H 118 H Pulse Rate [Right Finger] Pulse Rate from SpO2 Sensor 121 H 118 H 119 H Respiratory Rate 26 H 20 15 Respiratory Effort / Characteristics Blood Pressure 162/72 H Blood Pressure Mean 109 Pulse Oximetry 93 95 94 Oxygen Delivery Method Oxygen Flow Rate Sepsis Recent Fever Within 48 Hours Sepsis New/Unexplained Change in Mental Status Sepsis Action Taken by Nursing 03/15/19 13:00 03/15/19 13:35 03/15/19 13:37 Temperature Temperature Source Pulse Rate 117 H 116 H Pulse Rate [Right Finger] Pulse Rate from SpO2 Sensor 117 H Respiratory Rate 23 Respiratory Effort / Characteristics Blood Pressure 180/91 H Blood Pressure Mean 127 Pulse Oximetry 92 88 L Oxygen Delivery Method Room Air Oxygen Flow Rate Sepsis Recent Fever Within 48 Hours Sepsis New/Unexplained Change in Mental Status Sepsis Action Taken by Nursing 03/15/19 13:42 03/15/19 13:46 03/15/19 14:00 Temperature Temperature Source Pulse Rate 118 H Pulse Rate [Right Finger] Pulse Rate from SpO2 Sensor 118 H Respiratory Rate 16 Respiratory Effort / Characteristics Blood Pressure Blood Pressure Mean Pulse Oximetry 91 95 92 Oxygen Delivery Method Nasal Cannula Nasal Cannula Oxygen Flow Rate 2 2 Sepsis Recent Fever Within 48 Hours Sepsis New/Unexplained Change in Mental Status Sepsis Action Taken by Nursing 03/15/19 14:01 03/15/19 14:30 03/15/19 14:31 Temperature Temperature Source Pulse Rate 115 H 113 H 115 H Pulse Rate [Right Finger] Pulse Rate from SpO2 Sensor 115 H 114 H 115 H Respiratory Rate 16 17 17 Respiratory Effort / Characteristics Blood Pressure 182/92 H 186/101 H Blood Pressure Mean 126 139 Pulse Oximetry 92 93 93 Oxygen Delivery Method Oxygen Flow Rate Sepsis Recent Fever Within 48 Hours Sepsis New/Unexplained Change in Mental Status Sepsis Action Taken by Nursing 03/15/19 15:00 03/15/19 15:01 03/15/19 15:02 Temperature Temperature Source Pulse Rate 119 H 117 H 113 H Pulse Rate [Right Finger] Pulse Rate from SpO2 Sensor 118 H 115 H 113 H Respiratory Rate 27 H 19 21 Respiratory Effort / Characteristics Blood Pressure 197/107 H Blood Pressure Mean 143 Pulse Oximetry 93 93 93 Oxygen Delivery Method Nasal Cannula Oxygen Flow Rate 2 Sepsis Recent Fever Within 48 Hours Sepsis New/Unexplained Change in Mental Status Sepsis Action Taken by Nursing 03/15/19 15:30 03/15/19 15:31 03/15/19 16:00 Temperature Temperature Source Pulse Rate 111 H 110 H 115 H Pulse Rate [Right Finger] Pulse Rate from SpO2 Sensor 111 H 111 H Respiratory Rate 20 26 H 18 Respiratory Effort / Characteristics Blood Pressure 183/82 H 152/78 H Blood Pressure Mean 107 102 Pulse Oximetry 93 93 Oxygen Delivery Method Nasal Cannula Oxygen Flow Rate 2 Sepsis Recent Fever Within 48 Hours Sepsis New/Unexplained Change in Mental Status Sepsis Action Taken by Nursing 03/15/19 16:01 03/15/19 16:30 03/15/19 17:00 Temperature Temperature Source Pulse Rate 113 H 110 H 108 H Pulse Rate [Right Finger] Pulse Rate from SpO2 Sensor 111 H 108 H Respiratory Rate 22 17 19 Respiratory Effort / Characteristics Blood Pressure 152/78 H 146/72 H 151/76 H Blood Pressure Mean 105 102 90 Pulse Oximetry 93 93 Oxygen Delivery Method Nasal Cannula Oxygen Flow Rate 2 Sepsis Recent Fever Within 48 Hours Sepsis New/Unexplained Change in Mental Status Sepsis Action Taken by Nursing Constitutional: Vital signs reviewed. Eyes: Pupils are equal round reactive to light. Conjunctiva are noninjected. ENT: Pharynx is clear without erythema or exudate. Mucous membranes are moist. Neck supple without meningeal signs. Respiratory: Diffuse wheezing bilaterally. Breath sounds are equal bilaterally. Cardiovascular: Regular rate and rhythm. No rubs or gallops. GI: Soft, nondistended and nontender. Bowel sounds are present. Musculoskeletal: No peripheral edema. No lower extremity tenderness. Integumentary: No cyanosis. Neurological: The patient is awake and alert. No focal deficits. Psychiatric: Normal affect. Course Course 1048: Past medical records reviewed. The patient was evaluated in room C1B. A complete history and physical exam was performed. 1205: Upon reevaluation, the patient is not feeling any better. She is still wheezing. 1352: Upon reevaluation, the patient is still wheezing. Her oxygen saturation dropped and she is now on oxygen. 1407: I discussed the case with Dr. Bai[facility] Hospitalist who accepts the patient for further evaluation. Administered Medications Discontinued Medications Albuterol (Duoneb) 12 ml INH ONE STA Stop: 03/15/19 10:52 Last Admin: 03/15/19 11:20 Dose: 12 ml Documented by: [id number] Magnesium Sulfate/Dextrose (Magnesium Sulfate / D5w) 1 gm in 100 mls @ 100 mls/hr IV ONE ONE Stop: 03/15/19 11:50 Last Infusion: 03/15/19 12:34 Dose: 0 mls/hr Documented by: [id number] Admin: 03/15/19 11:30 Dose: 100 mls/hr Documented by: [id number] Levofloxacin/Dextrose (Levaquin/D5w) 750 mg in 150 mls @ 100 mls/hr IV NOW STA Stop: 03/15/19 15:34 Last Infusion: 03/15/19 15:48 Dose: 0 mls/hr Documented by: [id number] Admin: 03/15/19 14:15 Dose: 100 mls/hr Documented by: [id number] Methylprednisolone (Solumedrol) 60 mg IV NOW STA Stop: 03/15/19 10:54 Last Admin: 03/15/19 11:29 Dose: 60 mg Documented by: [id number] Critical Care Time Critical Care Time: Yes Total Critical Care Time: 35 I have personally spent approximately 35 minutes of critical care time in the direct management of this patient. This includes bedside care, interpretation of diagnostic studies, and testing, discussion with consultants, patient, and family members, and other required patient management activities. This approximately 35 minutes is in excess of all separately billable procedures. Medical Decision Making Differential Diagnosis Differential diagnoses include asthma exacerbation, bronchitis, pneumonia, stat us asthmaticus, pleurisy, and others were considered. Medical Records Attestation: I reviewed the patient's medical records. (The patient was seen in the ED on 03/10 and diagnosed with bronchitis. She was seen by primary care today and placed on doxycycline and albuterol nebulizers. The patient was referred here because she is not improving with nebulizer treatments. The patient's flu test was negative. ) Home Medications Current Medication List: was personally reviewed by me Laboratory Data Attestation: I reviewed the patient's lab results. Result diagrams: 03/15/19 11:16 03/15/19 11:16 Lab Results 03/15/19 03/15/19 03/15/19 Range/Units 11:16 11:16 11:16 WBC 14.26 H (4.8-10.8) K/uL RBC 4.35 (4.2-5.4) M/uL Hgb 12.1 (12.0-16.0) g/dL Hct 39.1 (37-47) % MCV 89.9 (80-100) fL MCH 27.8 (25-34) pg MCHC 30.9 L (32-36) g/dL RDW Std Deviation 50.0 H (36.4-46.3) fL RDW Coeff of Radu 15.1 H (11.5-14.5) % Plt Count 409 H (130-400) K/uL MPV 9.1 (7.4-10.4) fL Immature Gran % (Auto) 0.3 % Neut % (Auto) 81.6 % Lymph % (Auto) 9.7 % [place] % (Auto) 8.0 % Eos % (Auto) 0.2 % Baso % (Auto) 0.2 % Immature Gran # (Auto) 0.04 H (0.00-0.02) K/uL Neut # (Auto) 11.64 H (1.4-6.5) K/uL Lymph # (Auto) 1.38 (1.2-3.4) K/uL [place] # (Auto) 1.14 H (0.11-0.59) K/uL Eos # (Auto) 0.03 (0-0.5) K/uL Baso # (Auto) 0.03 (0-0.2) K/uL PT 9.8 (9.0-12.0) Seconds INR 1.0 (0.9-1.1) APTT 21.7 (21.0-31.0) Seconds PTT Ratio 0.8 Sodium 138 (136-145) mmol/L Potassium 3.6 (3.5-5.1) mmol/L Chloride 103 (98-107) mmol/L Carbon Dioxide 26 (21-32) mmol/L Anion Gap 9.0 (3-11) BUN 17 (7-18) mg/dl Creatinine 1.17 (0.6-1.2) mg/dl Est Cr Clr Drug Dosing 53.9 ml/min Est GFR ( Amer) 55.4 Est GFR (Non-Af Amer) 47.8 BUN/Creatinine Ratio 14.4 (10-20) Glucose 151 H (70-99) mg/dl Calcium 9.5 (8.5-10.1) mg/dl Total Bilirubin 0.4 (0.2-1) mg/dl AST 24 (15-37) U/L ALT 39 (12-78) U/L Alkaline Phosphatase 93 (45-117) U/L Troponin I < 0.015 (0-0.045) ng/ml Total Protein 8.3 H (6.4-8.2) gm/dl Albumin 3.7 (3.4-5.0) gm/dl Globulin 4.6 H (2.5-4.0) gm/dl Albumin/Globulin Ratio 0.8 L (0.9-2) Imaging Data Radiologist's Impression: Radiology results as stated below per my review and the radiologist's interpretation: XR chest 2V PA/lateral CLINICAL HISTORY: Cough. Evaluate for pneumonia. COMPARISON STUDY: Chest radiograph March 02, 2019. FINDINGS: Mild left lung airspace opacities have developed. There is no pneumothorax or pleural effusion. There is no evidence for pulmonary edema. Cardiomediastinal silhouette is stable. IMPRESSION: Interval development of mild left lung airspace opacities which favor an infectious process. ACT 112: Negative or not required by law. Electronically signed by: Romeo Almendarez M.D. 03/15/2019 1:55 PM ECG Data Attestation: I personally reviewed and interpreted this ECG as follows: Indication: + SOB/dyspnea Rate (beats per minute): 90 Rhythm: + normal sinus ECG Intervals/blocks: + Incomplete right bundle branch block ECG ST segments: + T-wave inversions (anterior and septal leads ); no ST elevation ECG Findings: no PVCs Comparison ECG Date: from (03/10/19) Change: no significant change Blood Pressure Blood Pressure Findings: Elevated blood pressure Blood Pressure Disposition: Referred to patients primary care provider CAITLYN Narrative I did evaluate the patient as noted above. Patient has asthma is presenting with difficulty breathing. She has been sick for approximately a week with flulike symptoms. She did have a nebulizer prior to arrival as well as a rapid flu test which was negative. She was sent over by her PCP for further care. IV access was established. The patient was placed on a continuous metal roofer. I did treat her with an hour-long continuous DuoNeb. She was also given Solu- Medrol 60 mg IV. I did order and personally review the patient's 12-lead EKG as described above. Her twelve-lead EKG shows an incomplete right bundle branch block with T wave inversions. I did order and personally reviewed the images of the patient's chest x-ray as described above. She does have a left lower lobe pneumonia. I did order blood cultures. I did treat the patient with IV magnesium as well as IV Levaquin. I did order and review the patient's blood work as noted in the electronic medical record. Her white count is 14,000. She is not anemic. Troponin is negative. I did reassess the patient several times. She had no significant change in her wheezing. Her O2 saturation dropped to 88%. It is unclear if this is secondary to VQ mismatch from the albuterol. We will continue to monitor. She was placed on supplemental oxygen. I did recommend hospitalization. I did discuss the case with the hospitalist and catalytic case operator. Impression & Plan Asthma exacerbation, Hypoxemia, Left lower lobe pneumonia, Failure of outpatient treatment Discharge Plan Visit Data Chief Complaint: Shortness of Breath/Dyspnea Stated Complaint: SOB,COUGH ED Provider: Kehinde Vincent Discharge Problem: Asthma exacerbation, Hypoxemia, Left lower lobe pneumonia, Failure of outpatien t treatment Patient Disposition: Being Evaluated by Hospitalist Discharge Instructions Interventions: ED Discharge Assessment Last Done: 03/15/19 17:14 Forms Stand Alone Forms: My [facility] [employer] Prescriptions Prescriptions: No Action metformin 500 mg tablet extended release 24 hr 500 mg PO BID Qty: 180 RF: 1 doxycycline monohydrate 100 mg capsule 100 mg PO BID Qty: 14 RF: 0 calcium carbonate-vitamin D3 600 mg(1,500mg) -200 unit tablet 1 tab PO QAM RF: 0 cholecalciferol (vitamin D3) [Vitamin D3] 1,000 unit capsule 1,000 unit PO HS RF: 0 benzonatate 200 mg capsule 200 mg PO TID PRN (Reason: cough) Qty: 21 RF: 0 prednisone 10 mg tablet 10 mg PO QID RF: 0 atorvastatin 10 mg tablet 10 mg PO MOWEFR@2100 RF: 0 lisinopril 20 mg tablet 20 mg PO HS RF: 0 multivitamin Tablet 1 tab PO QAM RF: 0 Referrals Referrals: Leonard George MD [Primary Care Provider] - Discharge Problem: Asthma exacerbation Qualifiers: Asthma severity: severe Asthma persistence: persistent Qualified Code(s): J45.51 - Severe persistent asthma with (acute) exacerbation Left lower lobe pneumonia Qualifiers: Pneumonia type: due to unspecified organism Qualified Code(s): J18.9 - Pneumonia, unspecified organism The kelvinibe's documentation has been prepared under my direction and personally reviewed by me in its entirety. I confirm that the note above accurately reflects all work, treatment, procedures, and medical decision making performed by me.
[2019-03-15] MEDS ORDERED: BENZONATATE 100 MG CAPSULE PO PRN (17:39)
[2019-03-15] MEDS ORDERED: GLUCOSE 40% GEL 15 GM TUBE PO PRN (17:39)
[2019-03-15] MEDS ORDERED: GLUCOSE 10 TABS/TUBE PO PRN (17:39)
[2019-03-15] MEDS ORDERED: GLUCAGON FOR INJ 1 MG VIAL SQ PRN (17:39)
[2019-03-15] MEDS ORDERED: DEXTROSE 50% 50 ML SYRINGE IV PRN (17:39)
[2019-03-15] MEDS ORDERED: ALBUTEROL 0.5% NEB SOLN 2.5 MG/0.5 ML VIAL NEB PRN (17:39)
[2019-03-15] MEDS ORDERED: CARBOHYDRATES FOR HYPOGLYCEMIA PO PRN (17:39)
[2019-03-15] MEDS ORDERED: ACETAMINOPHEN 325 MG TAB PO PRN (17:39)
[2019-03-15 18:09] LABS: Magnesium 1.9 mg/dl (1.8-2.4); Phosphorus 3.4 mg/dl (2.5-4.9)
[2019-03-15] MEDS: INSULIN ASPART 100 UNITS/ML 3 ML PEN SC SCH ×2 (18:33→21:07)
[2019-03-15] MEDS: INSULIN GLARGINE SOLOSTAR 100 UNITS/ML 3 ML PEN SC SCH (21:09)
[2019-03-15] MEDS: guaiFENesin 600 MG TABCR PO SCH (21:10)
[2019-03-15] MEDS: lisinopriL 20 MG TAB PO SCH (21:10)
[2019-03-15] MEDS: methylPREDNISolone 30 MG in SYRINGE 0 ML IV SCH (21:15)
--- NOTE | 2019-03-15 21:52 | History & Physical Report ---
Date of Service March 15, 2019 Assessment & Plan (1) Left lower lobe pneumonia: Patient afebrile, hemodynamically stable. Nontoxic in appearance, adequate oxygenation on 2 L nasal cannula Levaquin 750 mg IV daily Mucinex 600 mg p.o. twice daily Oxygen as needed Tessalon as needed Albuterol nebs every 2 hours as needed Present on Admission?: Yes (2) Asthma exacerbation: Patient with diffuse wheezing throughout. Suspect asthma exacerbation in setting of pneumonia Albuterol every 2 hours as needed Magnesium given Solu-Medrol 40 mg IV 3 times daily Present on Admission?: Yes (3) Hypoxemia: As above. Adequate oxygenation on 2 L now. No respiratory distress Continue to monitor Present on Admission?: Yes (4) Vitamin D deficiency: Chronic. Stable. Vitamin D supplementation, continue outpatient Present on Admission?: Yes (5) Type 2 diabetes mellitus: Chronic. Well-controlled. Hemoglobin A1c = 6.2 on 02/20/2019. Patient o n metformin at home. Risk of elevated blood sugars in setting of acute illness with IV steroid use Lantus 7 units subcu twice daily with insulin sliding scale Hold metformin while inpatient Continue to monitor Present on Admission?: Yes (6) Hypertension: Chronic. Blood pressure markedly elevated in the ER, 197/102. Patient asymptomatic. Reported that she felt highly anxious. Improved now to 159/84 Continue lisinopril 20 mg p.o. nightly Continue to monitor Present on Admission?: Yes (7) Mild obstructive sleep apnea: Chronic. CPAP nightly F/E/N - Heplock. Monitor electrolytes. CC diet Ppx - Low risk for DVT Code - Full Dispo - Admit to medical floor with telemetry History of Present Illness Chief Complaint: Shortness of breath Primary Care Provider: Leonard George MD 68-year-old female presenting with shortness of breath. Reports that her symptoms have been ongoing and progressively worsening over the last 5 days. She was seen in the ER on 03/10/2019 and was diagnosed with bronchitis. She was discharged home with an albuterol inhaler. She was seen by her PCP on 03/12/2019 and was given a prescription for doxycycline, prednisone taper and Tessalon Perles. She has been taking his medications as prescribed and reports her symptoms have been progressively worsening. She reports a cough productive for yellow sputum as well as worsening shortness of breath and dyspnea on exertion. Also with chills and sweats, no fever. She has pain in her back, specifically left sided, with deep breathing. No additional complaints at this time ER course: Albuterol neb, magnesium, Levaquin, Solu-Medrol Allergies Allergy/AdvReac Type Severity Reaction Status Date / Time aspirin Allergy Severe "CAN'T Verified 03/15/19 11:57 BREATHE" amoxicillin Allergy Unknown Unknown Verified 03/15/19 11:57 clavulanic acid Allergy Unknown Unknown Verified 03/15/19 11:57 Home Medications Home Medications Medication Instructions Recorded Confirmed Type calcium carbonate 600 mg (1,500 1 tab PO QAM tab 07/21/18 03/15/19 History mg)-vitamin D3 200 unit tablet cholecalciferol (vitamin D3) 25 1,000 unit PO HS cap 08/18/18 03/15/19 History mcg (1,000 unit) capsule lisinopril 20 mg PO HS 08/25/18 03/15/19 History multivitamin 1 tab PO QAM 08/25/18 03/15/19 History metformin 500 mg tablet,extended 500 mg PO BID #180 tab 12/15/18 03/15/19 Rx release 24 hr benzonatate 200 mg capsule 200 mg PO TID PRN #21 cap 03/12/19 03/15/19 Rx atorvastatin 10 mg PO MOWEFR@2100 03/15/19 03/15/19 History doxycycline monohydrate 100 mg 100 mg PO BID #14 cap 03/15/19 03/15/19 Rx capsule prednisone 10 mg PO QID 03/15/19 03/15/19 History Past Med/Surg History Medical History Anemia (Chronic) reports reason for colonoscopy Ascites (Acute) Blood in stool Coronary artery calcification (Acute) Diverticulosis 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 Dyslipidemia (Acute) GERD (gastroesophageal reflux disease) Hepatic steatosis (Chronic) Hypertension Incomplete right bundle branch block (Chronic) Intractable abdominal pain (Acute) Mild obstructive sleep apnea Morbid obesity (Chronic) Overflow diarrhea Periodic limb movement disorder (PLMD) (Chronic) Polyneuropathy (Chronic) Type 2 diabetes mellitus (Chronic) NIDDM Vitamin D deficiency (Chronic) Surgical History H/O blepharoplasty H/O foot surgery secondary to plantar fascitis H/O rectocele repair History of anesthesia reaction reports sob after previous colonoscopy - had to go to ER - > 10 years ago @ [facility] - cause? denies aspiration History of colonoscopy w/ polypectomy Nausea and vomiting after administration of anesthetic agent Family History Aunt Family history of reaction to anesthesia PONV Breast cancer Grandfather (Paternal) Family history of diabetes mellitus Brother Family history of diabetes mellitus Uncle Myocardial infarction Father COPD (chronic obstructive pulmonary disease) Mother Parkinson disease Social History Preferred Language: Irish Communication Ability: Effective Visual Impairment: No Limitations Hearing Ability: Normal Biztalk Software Developer Required: No Beliefs That Will Affect Care: None marital status: Current Living Situation: Spouse current occupational status: employed current occupation: [employer] Other Information That Helps Us Care for You: No Feels Safe at Home: Yes Safety Concerns: Feels Safe At This Time Smoking Status: Never smoker Second Hand Exposure: Yes ( A CHILD) ; Hx Alcohol Use: No Hx Substance Use: No Childhood Exposure to Second-Hand Smoke: Yes caffeine: Yes Dental Care, Regularly: Yes Physical Activity Frequency: 5-6 Times per Week Physical Activity Frequency Comment: walk Seatbelt Use: always Sunscreen Use: No Review of Systems Review of Systems: All systems reviewed & are unremarkable except as noted in HPI & below Physical Exam Physical Exam: General: patient resting comfortably, anxious in appearance, NAD, speaking in complete sentences with no evidence of respiratory distress, AA&O x 4 Skin: warm, dry, intact, no rashes or lesions HEENT: NC/AT, PERRL, EOMI, anicteric sclera, conjunctiva without injection, external ear normal to inspection and nontender, nares patent, moist mucus membranes, dentition intact, no oropharyngeal lesions, neck supple, trachea midline, no LAD, no thyromegaly, no JVD Heart: +S1/S2, regular, tachycardic, no m/r/g Lungs: equal air entry bilaterally, diffuse inspiratory and expiratory wheezing heard throughout bilateral lung holland, + crackles in the left midlung field, pain elicited with deep inspiration and left lung Abd: +BS, soft, NT/ND, no masses/organomegaly/ascites Ext: warm, 2+ pulses in UE/LE bilaterally, no clubbing/cyanosis or edema Neuro: nonfocal, patient AA&O x 4, speech intact, no facial droop, moving all extremities on command with equal strength 5/5, mildly tremulous after receiving neb treatment Results & Data Vital Signs (Past 12 Hours) Vital Signs Temp Pulse Pulse Resp BP BP BP 03/15/19 19:05 37.0 C 90 18 159/84 H 03/15/19 17:54 36.9 C 109 H 20 156/90 H 03/15/19 17:00 108 H 19 151/76 H 03/15/19 16:30 110 H 17 146/72 H 03/15/19 16:01 113 H 22 152/78 H 03/15/19 16:00 115 H 18 152/78 H 03/15/19 15:31 110 H 26 H 183/82 H 03/15/19 15:30 111 H 20 03/15/19 15:02 113 H 21 03/15/19 15:01 117 H 19 197/107 H 03/15/19 15:00 119 H 27 H 03/15/19 14:31 115 H 17 186/101 H 03/15/19 14:30 113 H 17 03/15/19 14:01 115 H 16 182/92 H 03/15/19 14:00 118 H 16 03/15/19 13:46 03/15/19 13:42 03/15/19 13:37 03/15/19 13:35 116 H 03/15/19 13:00 117 H 23 180/91 H 03/15/19 12:32 118 H 15 03/15/19 12:31 117 H 20 162/72 H 03/15/19 12:30 122 H 26 H 03/15/19 12:00 103 H 19 03/15/19 11:50 93 H 16 157/86 H 03/15/19 11:39 88 24 03/15/19 11:33 03/15/19 11:22 68 19 03/15/19 10:38 36.8 C 98 H 20 189/99 H Pulse Ox 03/15/19 19:05 95 03/15/19 17:54 93 03/15/19 17:00 93 03/15/19 16:30 93 03/15/19 16:01 03/15/19 16:00 03/15/19 15:31 93 03/15/19 15:30 93 03/15/19 15:02 93 03/15/19 15:01 93 03/15/19 15:00 93 03/15/19 14:31 93 03/15/19 14:30 93 03/15/19 14:01 92 03/15/19 14:00 92 03/15/19 13:46 95 03/15/19 13:42 91 03/15/19 13:37 88 L 03/15/19 13:35 03/15/19 13:00 92 03/15/19 12:32 94 03/15/19 12:31 95 03/15/19 12:30 93 03/15/19 12:00 99 03/15/19 11:50 98 03/15/19 11:39 99 03/15/19 11:33 98 03/15/19 11:22 91 03/15/19 10:38 96 Code Status & VTE Plan Code Status Full code PG Care Time/CCT Total # of Minutes Spent Total Time Spent with Patient: Total time spent is greater than 50% in coordination of care (as documented) at patient's floor/unit and/or counseling patient: (1) Left lower lobe pneumonia Pneumonia type: due to unspecified organism Qualified Code(s): J18.9 - Pneumonia, unspecified organism (2) Asthma exacerbation Asthma persistence: persistent Asthma severity: severe Qualified Code(s): J45.51 - Severe persistent asthma with (acute) exacerbation (3) Type 2 diabetes mellitus Diabetes mellitus shelter insulin use: without shelter use Diabetes mellitus complication status: without complication Qualified Code(s): E11.9 - Type 2 diabetes mellitus without complications (4) Hypertension Hypertension type: essential hypertension Qualified Code(s): I10 - Essential (primary) hypertension
[2019-03-16 07:20] LABS: Basophils # (auto) 0.01 K/uL (0-0.2); Basophils % (auto) 0.1 %; Hematocrit (blood only) 34.9 % (37-47); Hemoglobin 11.3 g/dL (12.0-16.0); Immature Granulocytes # (auto) 0.05 K/uL (0.00-0.02); Immature Granulocytes % (auto) 0.3 %; Lymphocytes # (auto) 1.74 K/uL (1.2-3.4); Lymphocytes % (auto) 11.2 %; Mean Corpuscular Hemoglobin 28.4 pg (25-34); Mean Corpuscular Hgb Conc 32.4 g/dL (32-36); Mean Corpuscular Volume 87.7 fL (80-100); Mean Platelet Volume 9.1 fL (7.4-10.4); Monocytes # (auto) 1.29 K/uL (0.11-0.59); Monocytes % (auto) 8.3 %; Neutrophils # (auto) 12.47 K/uL (1.4-6.5); Neutrophils % (auto) 80.1 %; Platelet Count 402 K/uL (130-400); RDW Coefficient of Variation 15.3 % (11.5-14.5); RDW Standard Deviation 49.6 fL (36.4-46.3); Red Blood Count 3.98 M/uL (4.2-5.4); White Blood Count 15.56 K/uL (4.8-10.8)
[2019-03-16 07:56] LABS: BUN Creatinine Ratio 19.7 (10-20); Calcium 9.9 mg/dl (8.5-10.1); Creatinine Clr Calc Pharmacy 57.2 ml/min; Est GFR (African American) 59.7; Est GFR (Non-African American) 51.5; Potassium 4.4 mmol/L (3.5-5.1)
[2019-03-16] MEDS: methylPREDNISolone 30 MG in SYRINGE 0 ML IV SCH ×3 (08:08→20:21)
[2019-03-16] MEDS: guaiFENesin 600 MG TABCR PO SCH ×2 (08:08→20:20)
[2019-03-16] MEDS: INSULIN GLARGINE SOLOSTAR 100 UNITS/ML 3 ML PEN SC SCH ×2 (08:08→20:24)
[2019-03-16] MEDS: INSULIN ASPART 100 UNITS/ML 3 ML PEN SC SCH ×4 (08:10→20:25)
--- NOTE | 2019-03-16 08:15 | Electrocardiogram Report ---
Test Reason : Blood Pressure : / mmHG Vent. Rate : 090 BPM Atrial Rate : 090 BPM P-R Int : 168 ms QRS Dur : 110 ms QT Int : 382 ms P-R-T Axes : 073 031 023 degrees QTc Int : 467 ms Normal sinus rhythm Incomplete right bundle branch block Abnormal ECG When compared with ECG of 10-MAR-2019 22:54, No significant change was found Confirmed by Homero Malloy ([id number]) on 03/15/2019 5:48:35 PM Referred By: REFERRED SELF Confirmed By:Mookie Malloy
[2019-03-16] MEDS: LEVOFLOXACIN/D5W 750 MG/150 ML BAG IV SCH (13:55)
--- NOTE | 2019-03-16 17:29 | Hospitalist Progress Note ---
Date of Service March 16, 2019 Assessment & Plan (1) Left lower lobe pneumonia: Patient remains afebrile, leukocytosis remains but is likely secondary to corticosteroid use. Had some sinus tachycardia but is now improving Oxygenation is improving she is now weaned down to 1 L nasal cannula With productive cough which is now improving Chest x-ray with infiltrate seen left midlung field Continue Levaquin 750 mg IV daily x7-day course-likely convert to p.o. tomorrow Continue Mucinex 600 mg p.o. twice daily Continue oxygen as needed to keep pulse ox greater than 90%-wean down as tolerated-May need to step prior to discharge Continue Tessalon as needed Continue albuterol nebs every 2 hours as needed -Follow chest x-ray to resolution in 4 to 6 weeks (2) Asthma exacerbation: Patient with diffuse wheezing throughout upon admission which is now much improved. Suspect asthma exacerbation in setting of pneumonia Albuterol every 2 hours as needed Magnesium given Solu-Medrol 40 mg IV 3 times daily and convert to p.o. prednisone tomorrow morning and finish out 5-day burst (3) Vitamin D deficiency: Chronic. Stable. Vitamin D supplementation, continue outpatient (4) Type 2 diabetes mellitus: Chronic. Well-controlled. Hemoglobin A1c = 6.2 on 02/20/2019. Patient on metformin at home. Risk of elevated blood sugars in setting of acute illness with IV steroid use With some continued hyperglycemia here in the low 200s which should improve with lowering dose of corticosteroids Lantus 7 units subcu twice daily with insulin sliding scale Hold metformin while inpatient Continue to monitor (5) Hypertension: Chronic. Blood pressure markedly elevated in the ER, 197/102 and now is much improved. Patient asymptomatic. Reported that she felt highly anxious Continue lisinopril 20 mg p.o. nightly Continue to monitor (6) Mild obstructive sleep apnea: Chronic. CPAP nightly at home but refuses to wear facemask here as only uses nasal CPAP- continue supplemental O2 at night instead (7) Acute respiratory failure with hypoxia: As above, secondary to pneumonia and asthma exacerbation Improving with steroids and antibiotic use -Continue supplemental O2 and wean down/off as able to (8) Obesity: Morbid obesity, BMI 41.6 kg/m*m -Needs counseling on weight loss (9) DVT prophylaxis: Add on Lovenox SQ Disposition-remain overnight and possible discharged home tomorrow Subjective Patient feeling much improved, still coughing up yellow sputum but is improved from previous. Feels less short of breath and remains on oxygen but feels that she no longer needs it. She has been ambulating around the room. Denies diarrhea, and she is making plenty of urine. She is eating well without nausea. She reports she cannot use a CPAP with a facemask here and has a nasal CPAP at home. Telemetry with normal sinus rhythm and sinus tachycardia with rates in the 70s to 130s Review of Systems Review of Systems: All systems reviewed & are unremarkable except as noted in HPI & below Physical Exam Constitutional: WD/WN, vitals as above + obese Eyes: + anicteric sclerae ENMT: external ear and nose normal, oropharynx normal Neck: trachea midline, no thyromegaly Respiratory: normal respiratory effort; no labored breathing Auscultation: + rhonchi (Right middle lung field) and + wheezes (Faint bilateral upper lung holland); no crackles Cardiovascular: RRR, no murmur, no edema Chest (Breasts): Chest: normal inspection of chest Gastrointestinal (Abdomen): normal bowel sounds, soft, nontender, no hepatosplenomegaly Musculoskeletal: Extremities: extremities normal to inspection; no cyanosis and no clubbing Skin: no rashes, warm and dry Neurologic: moves all extremities and awake; no focal motor deficits Psychiatric: A+Ox3, euthymic affect Lymphatic: no lymphedema Results & Data Vital Signs (Past 12 Hours) Vital Signs Temp Pulse Resp BP BP Pulse Ox 03/16/19 15:01 36.6 C 73 94 H 138/89 94 03/16/19 11:11 36.7 C 77 20 167/94 H 170/86 H 92 03/16/19 07:10 36.9 C 73 20 128/77 93 Laboratory Results 03/16/19 03/16/19 03/16/19 Range/Units 20:04 16:26 11:28 WBC (4.8-10.8) K/uL RBC (4.2-5.4) M/uL Hgb (12.0-16.0) g/dL Hct (37-47) % MCV (80-100) fL MCH (25-34) pg MCHC (32-36) g/dL RDW Std Deviation (36.4-46.3) fL RDW Coeff of Radu (11.5-14.5) % Plt Count (130-400) K/uL MPV (7.4-10.4) fL Immature Gran % (Auto) % Neut % (Auto) % Lymph % (Auto) % [place] % (Auto) % Eos % (Auto) % Baso % (Auto) % Immature Gran # (Auto) (0.00-0.02) K/uL Neut # (Auto) (1.4-6.5) K/uL Lymph # (Auto) (1.2-3.4) K/uL Marathon # (Auto) (0.11-0.59) K/uL Eos # (Auto) (0-0.5) K/uL Baso # (Auto) (0-0.2) K/uL Sodium (136-145) mmol/L Potassium (3.5-5.1) mmol/L Chloride (98-107) mmol/L Carbon Dioxide (21-32) mmol/L Anion Gap (3-11) BUN (7-18) mg/dl Creatinine (0.6-1.2) mg/dl Est Cr Clr Drug Dosing ml/min Est GFR ( Amer) Est GFR (Non-Af Amer) BUN/Creatinine Ratio (10-20) Glucose (70-99) mg/dl POC Glucose 200 H 160 H 106 H (70-99) Calcium (8.5-10.1) mg/dl 03/16/19 03/16/19 03/16/19 Range/Units 07:27 06:43 06:43 WBC 15.56 H (4.8-10.8) K/uL RBC 3.98 L (4.2-5.4) M/uL Hgb 11.3 L (12.0-16.0) g/dL Hct 34.9 L (37-47) % MCV 87.7 (80-100) fL MCH 28.4 (25-34) pg MCHC 32.4 (32-36) g/dL RDW Std Deviation 49.6 H (36.4-46.3) fL RDW Coeff of Ardu 15.3 H (11.5-14.5) % Plt Count 402 H (130-400) K/uL MPV 9.1 (7.4-10.4) fL Immature Gran % (Auto) 0.3 % Neut % (Auto) 80.1 % Lymph % (Auto) 11.2 % Marathon % (Auto) 8.3 % Eos % (Auto) 0.0 % Baso % (Auto) 0.1 % Immature Gran # (Auto) 0.05 H (0.00-0.02) K/uL Neut # (Auto) 12.47 H (1.4-6.5) K/uL Lymph # (Auto) 1.74 (1.2-3.4) K/uL Marathon # (Auto) 1.29 H (0.11-0.59) K/uL Eos # (Auto) 0.00 (0-0.5) K/uL Baso # (Auto) 0.01 (0-0.2) K/uL Sodium 137 (136-145) mmol/L Potassium 4.4 D (3.5-5.1) mmol/L Chloride 104 (98-107) mmol/L Carbon Dioxide 25 (21-32) mmol/L Anion Gap 8.0 (3-11) BUN 22 H (7-18) mg/dl Creatinine 1.10 (0.6-1.2) mg/dl Est Cr Clr Drug Dosing 57.2 ml/min Est GFR ( Amer) 59.7 Est GFR (Non-Af Amer) 51.5 BUN/Creatinine Ratio 19.7 (10-20) Glucose 150 H (70-99) mg/dl POC Glucose 139 H (70-99) Calcium 9.9 (8.5-10.1) mg/dl PG Care Time/CCT Total # of Minutes Spent Total Time Spent with Patient: Total time spent is greater than 50% in coordination of care (as documented) at patient's floor/unit and/or counseling patient: (1) Asthma exacerbation Asthma persistence: persistent Asthma severity: severe Qualified Code(s): J45.51 - Severe persistent asthma with (acute) exacerbation (2) Type 2 diabetes mellitus Diabetes mellitus complication status: without complication Diabetes mellitus longterm insulin use: without longterm use Qualified Code(s): E11.9 - Type 2 diabetes mellitus without complications (3) Left lower lobe pneumonia Pneumonia type: due to unspecified organism Qualified Code(s): J18.9 - Pneumonia, unspecified organism (4) Hypertension Hypertension type: essential hypertension Qualified Code(s): I10 - Essential (primary) hypertension
[2019-03-16] MEDS: lisinopriL 20 MG TAB PO SCH (20:21)
[2019-03-16] MEDS ORDERED: ATORVASTATIN 10 MG TAB PO SCH (21:00)
[2019-03-16] MEDS ORDERED: ENOXAPARIN INJ 40 MG/0.4 ML SYR SQ SCH (22:00)
[2019-03-17] MEDS: INSULIN ASPART 100 UNITS/ML 3 ML PEN SC SCH ×3 (08:41→17:15)
[2019-03-17] MEDS: INSULIN GLARGINE SOLOSTAR 100 UNITS/ML 3 ML PEN SC SCH (08:42)
[2019-03-17] MEDS: guaiFENesin 600 MG TABCR PO SCH (08:43)
[2019-03-17] MEDS ORDERED: predniSONE 20 MG TAB PO SCH (09:00)
[2019-03-17] MEDS: LEVOFLOXACIN/D5W 750 MG/150 ML BAG IV SCH (14:29)
[2019-03-17] MEDS ORDERED: ALBUT/IPRATROP 3MG/0.5MG NEB 3 ML VIAL NEB STA (16:09)
[2019-03-17] MEDS ORDERED: ALBUTEROL HFA 8 GM INHALER INH ONE (16:20)
--- NOTE | 2019-03-17 18:30 | Discharge Summary ---
Date of Service March 17, 2019 Admission HPI Per Admitting Provider 68-year-old female presenting with shortness of breath. Reports that her symptoms have been ongoing and progressively worsening over the last 5 days. She was seen in the ER on 03/10/2019 and was diagnosed with bronchitis. She was discharged home with an albuterol inhaler. She was seen by her PCP on 03/12/2019 and was given a prescription for doxycycline, prednisone taper and Tessalon Perles. She has been taking his medications as prescribed and reports her symptoms have been progressively worsening. She reports a cough productive for yellow sputum as well as worsening shortness of breath and dyspnea on exertion. Also with chills and sweats, no fever. She has pain in her back, specifically left sided, with deep breathing. No additional complaints at this time ER course: Albuterol neb, magnesium, Levaquin, Solu-Medrol Principal Diagnosis Community acquired pneumonia, Acute asthma exacerbation, Acute respiratory failure with hypoxia-resolved Discharge Exam Constitutional WD/WN, vitals as above + obese Eyes + anicteric sclerae ENMT external ear and nose normal, oropharynx normal Neck trachea midline, no thyromegaly Respiratory normal respiratory effort; no labored breathing Auscultation: + rhonchi (left lower lung field) and + wheezes (Faint bilateral lower lung holland); no crackles Cardiovascular RRR, no murmur, no edema Chest (Breasts) Chest: normal inspection of chest Gastrointestinal (Abdomen) normal bowel sounds, soft, nontender, no hepatosplenomegaly Musculoskeletal Extremities: extremities normal to inspection; no cyanosis and no clubbing Skin no rashes, warm and dry Neurologic moves all extremities and awake; no focal motor deficits Psychiatric A+Ox3, euthymic affect Lymphatic no lymphedema Discharge Data Allergies Allergy/AdvReac Type Severity Reaction Status Date / Time aspirin Allergy Severe "CAN'T Verified 03/15/19 11:57 BREATHE" amoxicillin Allergy Unknown Unknown Verified 03/15/19 11:57 clavulanic acid Allergy Unknown Unknown Verified 03/15/19 11:57 Consultations 03/15/19 14:05 ED Decision to Admit Stat Ordered Studies CXR Hospital Course (1) Left lower lobe pneumonia: Presented with progressive productive cough, pleuritic type pain on left and had infiltrate in left lung on CXR. With leukoctyosis and hypoxia on admission. Patient remains afebrile, had some sinus tachycardia but is now improving Hypoxia resolved-was ambulating without O2 and lowest POx was 91-93% With productive cough which is now improving Continue Levaquin 750 mg and convert to po form daily x7-day course-needs 5 more days Continue Mucinex 600 mg p.o. twice daily Continue Tessalon as needed Continue albuterol inhaler 2 puffs q4h prn -Follow chest x-ray to resolution in 4 to 6 weeks (2) Asthma exacerbation: Patient with diffuse wheezing throughout upon admission which is now much improved. Suspect asthma exacerbation in setting of pneumonia Albuterol nebs given prn -send home with albuterol HFA treated initially with Solu-Medrol 40 mg IV 3 times daily and converted to p.o. prednisone 40mg daily to finish out 7-day burst (3) Vitamin D deficiency: Chronic. Stable. Vitamin D supplementation, continue outpatient (4) Type 2 diabetes mellitus: Chronic. Well-controlled. Hemoglobin A1c = 6.2 on 02/20/2019. Patient on metformin at home. With some continued hyperglycemia here in the low 200s which should improve with completing course of corticosteroids was given basal/bolus insulin while here, can resume metformin upon discharge (5) Hypertension: Chronic. Blood pressure markedly elevated in the ER, 197/102 and now is much improved. Patient asymptomatic. Reported that she felt highly anxious Continue lisinopril 20 mg p.o. nightly Continue to monitor as outpt (6) Mild obstructive sleep apnea: Chronic. CPAP nightly at home (7) Acute respiratory failure with hypoxia: As above, secondary to pneumonia and asthma exacerbation Resolved now with steroids and antibiotic use (8) Obesity: Morbid obesity, BMI 41.6 kg/m*m -Needs counseling on weight loss and dietary changes as an outpt (9) DVT prophylaxis: Lovenox SQ was provided Disposition-stable for dc to home today Total Time Total Time Spent Total Time Spent (In Minutes): 40 min Total Time Includes: Examination of the Patient, Discharge Planning and Medication Reconciliation Discharge Plan Discharge Items Patient Disposition: Home - Self-Care Reason For Visit: ASTHMA, PNA Discharge Diagnosis: Pneumonia, acute asthma exacerbation Condition on Discharge: Fair Activity: As commented below Lifting: Gradually increase as tolerated Bathing: No limitations Exercise/Sports: Gradually increase as tolerated Driving/Machine Use: Resume 1 day after discharge Non-emergency contact: Primary Care Provider Call non-emergency contact if: you have any medication questions and your symptoms worsen Follow-up/Referrals: Leonard George MD [Primary Care Provider] - (Please call for a hospital follow up appointment within 1-2 weeks after discharge. ) Diet: Carb Consistent or DM2 Addtl Attending Provider Instructions: Finish out a course of prednisone 40mg daily x 5 more days. Please also finish out 5 more days of the antibiotic, Levaquin. You should follow up with your PCP within 1-2 weeks. You were tested to see if you needed oxygen prior to discharge and you did not. You can continue to use the albuterol inhaler 2 puffs every 4 hours as needed for cough and wheezing. Pending Studies at Discharge: Yes (Final blood culture results) Stand-Alone Forms: My [facility] Medications and DC Order Prescriptions: New albuterol sulfate [Ventolin HFA] 90 mcg/actuation Hfa Aerosol Inhaler 2 puff inhalation Q4 PRN (Reason: shortness of breath or wheezing) Qty: 18 RF: 0 guaifenesin [Mucinex] 600 mg Tablet Extended Release 12hr 600 mg PO Q12 Qty: 20 RF: 0 levofloxacin [Levaquin] 750 mg tablet 750 mg PO DAILY 5 Days Qty: 5 RF: 0 prednisone 20 mg Tablet 40 mg PO DAILY 5 Days Qty: 10 RF: 0 Continued metformin 500 mg tablet extended release 24 hr 500 mg PO BID Qty: 180 RF: 1 calcium carbonate-vitamin D3 600 mg(1,500mg) -200 unit tablet 1 tab PO QAM RF: 0 cholecalciferol (vitamin D3) [Vitamin D3] 1,000 unit capsule 1,000 unit PO HS RF: 0 benzonatate 200 mg capsule 200 mg PO TID PRN (Reason: cough) Qty: 21 RF: 0 atorvastatin 10 mg tablet 10 mg PO MOWEFR@2100 RF: 0 lisinopril 20 mg tablet 20 mg PO HS RF: 0 multivitamin Tablet 1 tab PO QAM RF: 0 Discontinued doxycycline monohydrate 100 mg capsule 100 mg PO BID Qty: 14 RF: 0 prednisone 10 mg tablet 10 mg PO QID RF: 0 Discharge Orders: Discharge Order (Routine); Ordered 03/17/19 Ordered By: Danisha Santiago Admission Data Admit Date/Time: 03/15/19 15:56 Attending Provider: Danisha Santiago Admit Provider: Yesica Bai Primary Care Provider: Leonard George Other Providers: Yesica Bai
[2019-03-17] MEDS ORDERED: ALBUTEROL HFA 8 GM INHALER INH SCH (20:00)
== END 2019-03-17 18:55 | disposition home or self-care (01) | DRG 193 ==
LOC: ED 10:34 → 2W 15:56 → SUATTDRO 15:56 → 2W 17:14

== ENCOUNTER 2024-04-04 06:15 | Inpatient (IN) ==
--- NOTE | 2024-03-08 09:55 | PAT Medication Instructions ---
Medication Instructions Date of Service March 08, 2024 Home Medications Medication Instructions Recorded albuterol sulfate 90 mcg/actuation 2 puff inhalation Q4 PRN shortness 02/17/23 aerosol inhaler (Ventolin HFA) of breath or wheezing #54 grams metformin 500 mg tablet,extended 500 mg PO BID #180 tabs 10/25/23 release 24 hr atorvastatin 10 mg tablet 10 mg PO 3XWK #36 tabs 01/16/24 blood sugar diagnostic (FreeStyle #100 ea 01/20/24 Lite Strips) blood-glucose meter (FreeStyle #1 ea 01/20/24 Lite Meter kit) calcium 600 mg (as carbonate)-vitamin D3 5 mcg (200 unit) tablet 1 tab PO QAM cholecalciferol (vitamin D3) 25 mcg (1,000 unit) capsule (Vitamin D3) 1,000 unit PO QPM multivitamin 1 tab PO QAM ferrous sulfate 325 mg (65 mg iron) tablet (Feosol) 325 mg PO DAILY albuterol sulfate 90 mcg/actuation aerosol inhaler (Ventolin HFA) 2 puff inhalation Q4 PRN shortness of breath or wheezing metformin 500 mg tablet,extended release 24 hr 500 mg PO BID furosemide 20 mg tablet (Lasix) 20 mg PO DAILY PRN Edema lisinopril 20 mg tablet 20 mg PO QPM atorvastatin 10 mg tablet 10 mg PO 3XWK Continue as directed atorvastatin 10 mg tablet 10 mg PO 3XWK DO NOT take the morning of surgery calcium 600 mg (as carbonate)-vitamin D3 5 mcg (200 unit) tablet 1 tab PO QAM multivitamin 1 tab PO QAM ferrous sulfate 325 mg (65 mg iron) tablet (Feosol) 325 mg PO DAILY metformin 500 mg tablet,extended release 24 hr 500 mg PO BID furosemide 20 mg tablet (Lasix) 20 mg PO DAILY PRN Edema Take morning of surgery With a small sip of water, OTHERWISE NOTHING TO EAT OR DRINK AFTER MIDNIGHT: albuterol sulfate 90 mcg/actuation aerosol inhaler (Ventolin HFA) 2 puff inhalation Q4 PRN shortness of breath or wheezing (use if needed; please bring rescue inhaler with you to hospital day of surgery if possible) Take evening before surgery cholecalciferol (vitamin D3) 25 mcg (1,000 unit) capsule (Vitamin D3) 1,000 unit PO QPM albuterol sulfate 90 mcg/actuation aerosol inhaler (Ventolin HFA) 2 puff inhalation Q4 PRN shortness of breath or wheezing (if needed) metformin 500 mg tablet,extended release 24 hr 500 mg PO BID furosemide 20 mg tablet (Lasix) 20 mg PO DAILY PRN Edema (if needed) lisinopril 20 mg tablet 20 mg PO QPM Other Notes If you have any questions please call us at [phone] or [phone] or [phone] or [phone]
--- NOTE | 2024-03-16 08:19 | Anesthesiology Consultation ---
Date of Service March 16, 2024 Assessment & Plan (1) Encounter for pre-operative examination: - Check BSG DOS - Infectious disease screening: Per assessment on 03/16/24- No known recent infectious disease contacts or current infectious disease symptoms. - Outpatient joint assessment: Pt currently scheduled for inpatient pathway. If surgeon requests review for outpatient joint pathway, patient is not recommended candidate for outpatient joint program from anesthesia standpoint based on available information. Chart Review Chart Review: Acceptable Risk for Surgery and Patient seen in Pre Admission Testing Teaching & Discussion Pre-Anesthesia Teaching/Discussion Notes: Instructed NPO after midnight before surgery,except medications with 15 cc of water. Medication instructions provided according to the PAT guidelines. History Surgery Operation Date: 04/04/24 10:55 Proposed Procedures p Left Total Knee Arthroplasty - Fidel Bai MD Height/Weight Height: 5 ft 3 in Weight: 100.4 kg Allergies Allergy/AdvReac Type Severity Reaction Status Date / Time aspirin Allergy Severe "Can't Verified 03/05/24 14:28 Breath" amoxicillin Allergy Unknown Unknown Verified 03/05/24 14:28 clavulanic acid Allergy Unknown Unknown Verified 03/05/24 14:28 percocet AdvReac Intermediate Nausea/Vomi Uncoded 03/05/24 14:28 ting Medications Home Medications Medication Instructions Recorded Confirmed Last Taken calcium 600 mg (as 1 tab PO QAM 07/21/18 03/05/24 03/14/19 carbonate)-vitamin D3 5 mcg (200 unit) tablet cholecalciferol (vitamin D3) 25 1,000 unit PO QPM 08/18/18 03/05/24 03/14/19 mcg (1,000 unit) capsule (Vitamin D3) multivitamin 1 tab PO QAM 08/25/18 03/05/24 03/14/19 ferrous sulfate 325 mg (65 mg 325 mg PO DAILY 11/10/20 03/05/24 Unknown iron) tablet (Feosol) albuterol sulfate 90 mcg/actuation 2 puff inhalation Q4 PRN shortness 02/17/23 03/05/24 Unknown aerosol inhaler (Ventolin HFA) of breath or wheezing #54 grams metformin 500 mg tablet,extended 500 mg PO BID #180 tabs 10/25/23 03/05/24 Unknown release 24 hr furosemide 20 mg tablet (Lasix) 20 mg PO DAILY PRN Edema 01/13/24 03/05/24 Unknown lisinopril 20 mg tablet 20 mg PO QPM 01/13/24 03/05/24 Unknown atorvastatin 10 mg tablet 10 mg PO 3XWK #36 tabs 01/16/24 03/05/24 Unknown blood sugar diagnostic (FreeStyle #100 ea 01/20/24 02/27/24 Unknown Lite Strips) blood-glucose meter (FreeStyle #1 ea 01/20/24 02/27/24 Unknown Lite Meter kit) Biotin Gummy 2 gummy PO DAILY 03/16/24 Unknown Past Medical History Medical History Alternating constipation and diarrhea Anemia Chronic Asthma Cataract Single eye (patient unsure which side) Chronic kidney disease, stage III (moderate) Per records Coronary artery calcification Per records Depression with anxiety Per records, patient denies Diverticular disease Per records, patient unsure Duplex ureter Noted by CT 01/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 Dyslipidemia GERD (gastroesophageal reflux disease) History of COVID-19 (12/21/23) No hospitalization Hx of colonic polyps Hx of migraines Hypertension Incomplete RBBB Left knee DJD Lumbar radiculopathy Metabolic syndrome Osteoarthritis, knee Polyneuropathy Poor historian Sleep apnea CPAP (compliant) Type 2 diabetes mellitus NIDDM Venous insufficiency (chronic) (peripheral) Past Family History Family History Aunt Family history of reaction to anesthesia PONV Breast cancer Grandfather (Paternal) Family history of diabetes mellitus Brother Diabetes Stroke Uncle Myocardial infarction Father COPD (chronic obstructive pulmonary disease) Mother , Apr 2020 Parkinson disease Denies family history of Ovarian cancer Prostate cancer Lung cancer Colorectal cancer Past Surgical History Surgical History H/O blepharoplasty H/O foot surgery secondary to plantar fascitis H/O rectocele repair History of anesthesia reaction Dyspnea after remote colonoscopy 10+ years ago ([facility] [place]) > went to ER, unclear cause, denies aspiration Hx of colonoscopy with polypectomy Nausea and vomiting after administration of anesthetic agent Past Anesthesia History No Family Hx of Anesthesia Complications (except family history of PONV per records) and Other (Dyspnea after remote colonoscopy 10+ years ago ([facility] [place]) > went to ER, unclear cause, denies aspiration) History of PONV History of PONV and Hx of Motion Sickness Social History Smoking Status: Never smoker Do You Dip or Chew Tobacco: No Hx Alcohol Use: No Hx Substance Use: No substance use type: does not use Review of Systems Patient denies chest pain, shortness of breath, fever, chills, cough, wheezing, palpitations. Physical Exam Vital Signs BP 121/79 P 69 TEMP 97.9 SP02 95%RA RESP 18 Physical Full cervical extension range of motion. Full TMJ range of motion. TMD 3 finger breaths Mallampati Score II Dentition: several missing molars, + crowns Lungs: clear throughout to auscultation Cardiac: regular rate and rhythm, no murmurs noted Spine: normal Carotid arteries: negative bruit Extremities: no LE pitting edema Lab Results Anesthesia Preop Results Results Anesthesia Widget: WBC 8.89 K/ul (4.8-10.8) 03/16/24 Hgb 11.6 g/dl (12.0-16.0) L 03/16/24 Hct 36.2 % (37.0-47.0) L 03/16/24 Plt 371 K/uL (130-400) 03/16/24 Na 138 mmol/L (136-145) 03/16/24 K 4.4 mmol/L (3.5-5.1) 03/16/24 Cl 104 mmol/L (98-107) 03/16/24 CO2 29 mmol/L (21-32) 03/16/24 BUN 23 mg/dl (6-23) 03/16/24 Creat 1.07 mg/dl (0.6-1.2) 03/16/24 Glucose Level 97 mg/dl (70-99(Fasting)) 03/16/24 PT 10.2 Seconds (9.0-12.0) 03/16/24 PTT 26 Seconds (21-31) 03/16/24 INR 0.9 (0.9-1.1) 03/16/24 TSH 1.674 uIu/ml (0.300-4.500) 03/13/24 HA1c 5.9 % (4.5-5.6) H 03/13/24 Blood Type A Positive 03/16/24 Antibody Screen NEGATIVE 03/16/24 Testing Electrocardiogram Date: 03/16/24 NSR at 71bpm. iRBBB. Chest X-Ray Date: 03/16/24 FINDINGS: No lines and tubes are seen. The cardiomediastinal silhouette is normal. The lungs are clear. No evidence of pleural effusion or pneumothorax. IMPRESSION: No acute chest disease. Echocardiogram Date: 08/25/20 EF 55-60%. LV wall motion is normal. No significant valvular disease.
--- NOTE | 2024-03-31 08:47 | History & Physical Report ---
Date of Service March 31, 2024 Assessment & Plan (1) Left knee DJD: 73-year-old female with history of persistent progressive right knee pain consistent with progressive arthritis. She failed conservative measures. He is ready to have her left knee replaced Plan: Tino to take with the operating room for left total knee replacement. The risks and benefits of this procedure were explained. Informed consent was obtained. As she does live by herself and she is looking to go to rehab or alf facility postoperatively. Will use Xarelto for DVT prophylaxis due to her difficulty taking aspirin. We use insulin sliding scale diabetes coverage. She will follow back in clinic 2 weeks postop. (2) Metabolic syndrome: (3) Type 2 diabetes mellitus: (4) Incomplete right bundle branch block: (5) Hepatic steatosis: (6) Dyslipidemia: (7) Hypertension: (8) Asthma: (9) GERD (gastroesophageal reflux disease): History of Present Illness Chief Complaint: . Left knee pain Primary Care Provider: Sarahi Laguna DO . The patient is a 73-year-old female who lives by herself and presents for surgical treatment of her left knee. She is referred by Dr. Mejía. She had a known history of left knee arthritis and described to gotten worse over time. She been through extensive conservative treatment which would become less successful. The last steroid and possibly have not helped much at all. Pain is mostly medial. She is having difficulty living by herself and staying active due to her knee pain. She would like. Allergies Allergy/AdvReac Type Severity Reaction Status Date / Time aspirin Allergy Severe "Can't Verified 03/05/24 14:28 Breath" amoxicillin Allergy Unknown Unknown Verified 03/05/24 14:28 clavulanic acid Allergy Unknown Unknown Verified 03/05/24 14:28 percocet AdvReac Intermediate Nausea/Vomi Uncoded 03/05/24 14:28 ting Home Medications Medication Instructions Recorded Confirmed Type calcium 600 mg (as 1 tab PO QAM 07/21/18 03/05/24 History carbonate)-vitamin D3 5 mcg (200 unit) tablet cholecalciferol (vitamin D3) 25 1,000 unit PO QPM 08/18/18 03/05/24 History mcg (1,000 unit) capsule (Vitamin D3) multivitamin 1 tab PO QAM 08/25/18 03/05/24 History ferrous sulfate 325 mg (65 mg 325 mg PO DAILY 11/10/20 03/05/24 History iron) tablet (Feosol) albuterol sulfate 90 mcg/actuation 2 puff inhalation Q4 PRN shortness 02/17/23 03/05/24 Rx aerosol inhaler (Ventolin HFA) of breath or wheezing #54 grams metformin 500 mg tablet,extended 500 mg PO BID #180 tabs 10/25/23 03/05/24 Rx release 24 hr furosemide 20 mg tablet (Lasix) 20 mg PO DAILY PRN Edema 01/13/24 03/05/24 History lisinopril 20 mg tablet 20 mg PO QPM 01/13/24 03/05/24 History atorvastatin 10 mg tablet 10 mg PO 3XWK #36 tabs 01/16/24 03/05/24 Rx blood sugar diagnostic (FreeStyle #100 ea 01/20/24 02/27/24 Rx Lite Strips) blood-glucose meter (FreeStyle #1 ea 01/20/24 02/27/24 Rx Lite Meter kit) Biotin Gummy 2 gummy PO DAILY 03/16/24 History Past Med/Surg History Problem List Encounter for pre-operative examination Left knee DJD Lumbar radiculopathy Depression with anxiety Venous insufficiency (chronic) (peripheral) Anemia Metabolic syndrome Mild obstructive sleep apnea Diverticulosis Vitamin D deficiency (Chronic) Type 2 diabetes mellitus (Chronic) NIDDM Polyneuropathy (Chronic) Periodic limb movement disorder (PLMD) (Chronic) Incomplete right bundle branch block (Chronic) Hepatic steatosis (Chronic) Dyslipidemia GERD (gastroesophageal reflux disease) Hypertension Asthma (Chronic) Medical History Hx of colonic polyps Coronary artery calcification Per records Venous insufficiency (chronic) (peripheral) Polyneuropathy Osteoarthritis, knee Lumbar radiculopathy Left knee DJD Hx of migraines Poor historian Cataract Single eye (patient unsure which side) Type 2 diabetes mellitus NIDDM Alternating constipation and diarrhea Metabolic syndrome Sleep apnea CPAP (compliant) Incomplete RBBB Hypertension GERD (gastroesophageal reflux disease) Dyslipidemia Duplex ureter Noted by CT 01/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 Diverticular disease Per records, patient unsure Depression with anxiety Per records, patient denies History of COVID-19 (12/21/23) No hospitalization Chronic kidney disease, stage III (moderate) Per records Asthma Anemia Chronic Surgical History Hx of colonoscopy with polypectomy H/O blepharoplasty History of anesthesia reaction Dyspnea after remote colonoscopy 10+ years ago ([facility]) > went to ER, unclear cause, denies aspiration Nausea and vomiting after administration of anesthetic agent H/O foot surgery secondary to plantar fascitis H/O rectocele repair Family History Aunt Family history of reaction to anesthesia PONV Breast cancer Grandfather (Paternal) Family history of diabetes mellitus Brother Diabetes Stroke Uncle Myocardial infarction Father COPD (chronic obstructive pulmonary disease) Mother , Apr 2020 Parkinson disease Denies family history of Ovarian cancer Prostate cancer Lung cancer Colorectal cancer Social History Smoking Status: Never smoker Second Hand Exposure: No; Do You Dip or Chew Tobacco: No; Tobacco Cessation Education Requested by Patient: No Hx Alcohol Use: No Hx Substance Use: No Preferred Language: Maori Communication Ability: Effective Visual Impairment: Partially Limited Hearing Ability: Normal Legal Investigator Required: No Beliefs That Will Affect Care: None marital status: / marital status details: lost spouse (Sylvester Miller) 11/2021 Current Living Situation: Spouse Current Living Situation Comment: lives alone, neighbors are all elderly current occupational status: employed current occupation: [employer] How many Children do You have: 2 Other Information That Helps Us Care for You: No Feels Safe at Home: Yes Safety Concerns: Feels Safe At This Time Childhood Exposure to Second-Hand Smoke: Yes Diet: regular Diet Comment: regular caffeine: Yes during the past year weight has: remained stable Dental Care, Regularly: Yes Physical Activity Frequency: Daily Physical Activity Frequency Comment: walk Seatbelt Use: always Sunscreen Use: Yes Assistive Devices: CPAP and Glasses Review of Systems All systems reviewed & are unremarkable except as noted in HPI & below. Physical Exam . Physical examination reveals a pleasant elderly female. Looks to be in reasonably good health. Examination of left knee reveals patient walks with an antalgic gait. She got slight varus alignment to her knee. Moderate soft tissue envelope. She is tender over the medial joint line. Small knee effusion. Range of motion about 5-1 20. No instability. No particular pain with hip motion. She is neurologically intact. Constitutional WD/WN, vitals as above Neck trachea midline, no thyromegaly Respiratory normal respiratory effort, lungs clear to auscultation Cardiovascular RRR, no murmur, no edema Gastrointestinal (Abdomen) normal bowel sounds, soft, nontender, no hepatosplenomegaly Results & Data Results & Data Laboratory Results . Diagnostic Findings . X-rays left knee reviewed. Shows advanced medial compartment arthritis. She got complete loss of medial joint space. She got osteophytes primarily medially but some small osteophytes laterally. She got fairly similar with less severe Rae disease of the right knee. PG Care Time/CCT Total # of Minutes Spent Total Time Spent with Patient: Total time spent is greater than 50% in coordination of care (as documented) at patient's floor/unit and/or counseling patient: Coding Level of Care Code None Diagnoses Left knee DJD M17.12 Metabolic syndrome E88.81 Type 2 diabetes mellitus without complication, without long-term current use of insulin E11.9 Diabetes mellitus intermediate frame tender insulin use: without intermediate frame tender use Diabetes mellitus complication status: without complication Incomplete right bundle branch block I45.10 Hepatic steatosis K76.0 Dyslipidemia E78.5 Essential hypertension I10 Hypertension type: essential hypertension Asthma J45.909 GERD (gastroesophageal reflux disease) K21.9 (3) Type 2 diabetes mellitus Diabetes mellitus fci insulin use: without intermediate frame tender use Diabetes mellitus complication status: without complication Qualified Code(s): E11.9 - Type 2 diabetes mellitus without complications (7) Hypertension Hypertension type: essential hypertension Qualified Code(s): I10 - Essential (primary) hypertension
[~2024-04-04 06:15] MED LIST changes: -CALC600T9 PO; -CHOL400T PO; -COEN10CA5 PO; -GLIP2.5T11 PO; -LVQ250 PO; -OMEP20CA9 PO; -VITA100C2 PO; +[UNRECOGNIZED DRUG - REMARK] SCH
[2024-04-04] MEDS ORDERED: ROPIVACAINE 0.5% 5 MG/ML 30 ML VIAL ONE (06:28)
[2024-04-04] MEDS ORDERED: BUPIVACAINE 0.5 % 5 MG/1 ML PF 10ML VIAL ONE (06:28)
[2024-04-04] MEDS: LR 500ML BOLUS, THEN 15ML/HR IV SCH (06:45)
--- NOTE | 2024-04-04 06:52 | History & Physical Bridge Note ---
Date of Service April 04, 2024 History & Physical Bridge Note I have examined the patient, reviewed the History & Physical and in the interval since the performance of the History & Physical I have noted the following changes of clinical significance: no changes noted
[2024-04-04] MEDS: ACETAMINOPHEN 500 MG TAB PO SCH ×2 (07:18→17:53)
[2024-04-04] MEDS: FAMOTIDINE 20 MG TAB PO SCH (07:19)
[2024-04-04] MEDS: dexAMETHasone**PF** 10 MG/ML VIAL IV SCH (07:19)
[2024-04-04] MEDS: METOCLOPRAMIDE HCL 10 MG TABLET PO SCH (07:19)
[2024-04-04] MEDS: LR 60ML/HR IV SCH (07:29)
[2024-04-04] MEDS ORDERED: PROPOFOL IV EMULSION 10 MG/ML 20 ML VIAL IV ONE (07:34)
[2024-04-04] MEDS ORDERED: LIDOCAINE 2% 2 ML VIAL/AMP(20MG/ML) INFIL ONE (07:34)
[2024-04-04] MEDS ORDERED: ONDANSETRON INJ 2 MG/ML 2 ML VIAL ONE ×2 (07:34→09:15)
[2024-04-04] MEDS ORDERED: fentaNYL citrate PF 100 MCG/2 ML VIAL ONE ×2 (07:35→09:32)
[2024-04-04] MEDS ORDERED: MIDAZOLAM HCL 1 MG/ML 2ML VIAL ONE (07:35)
[2024-04-04] MEDS ORDERED: PROMETHAZINE HCL 6.25 MG in SODIUM CHLORIDE 0.9% 50 ML IV PRN (09:01)
[2024-04-04] MEDS ORDERED: ePHEDrine sulfate 50 MG/ML AMP IV PRN (09:01)
[2024-04-04] MEDS ORDERED: ATROPINE SULFATE 0.1 MG/ML 10ML SYR IV PRN (09:01)
[2024-04-04] MEDS: ceFAZolin 2000MG 2,000 MG/15 ML SYR IV SCH ×2 (09:07→17:59)
[2024-04-04] MEDS: ROPIV 0.5% 246mg, Ketorolac 30mg, EPINEPHrine 0.5mg in NSS INFIL SCH (09:48)
[2024-04-04] MEDS: ORTHO JOINT ANESTHETIC ONE (09:48)
[2024-04-04] MEDS: TRANEXAMIC ACID 1,000 MG **IV Intra-op IV SCH (10:04)
--- NOTE | 2024-04-04 11:02 | Operative Report ---
PG Post Operative Report Pre & Post Diagnosis Operation Date: 04/04/24 08:50 Pre-Op Diagnosis: Left Knee Degenerative Joint Disease Post-Op Diagnosis: Left Knee Degenerative Joint Disease I identified the patient and participated in the time-out.: Yes Procedure Operation Date: 04/04/24 08:50 Actual Procedures p Left Total Knee Arthroplasty(Left) - Fidel Bai MD Surgeon Fidel Bai MD Parts Processor Dequan Schneider PA-C Estimated Blood Loss 50 Findings Consistent with Post-Op Diagnosis Operative findings revealed a large soft tissue envelope. She had a grade 4 [id number] disease the medial compartment. She had some less extensive grade 4 changes in the patellofemoral compartment as well. Moderate-sized joint effusion. Specimens Right knee sent for pathology. Anesthesia Type General Regional Complications none Disposition Accompanied Patient To Recovery: No Indications Patient is a 73-year-old female whose had a several year history of increasing bilateral knee pain discomfort left side greater than the right. She been through extensive conservative treatment which became less successful with time. X-rays show advanced medial compartment arthritis. She elected proceed with a left total knee arthroplasty. Description of Procedure Operative implants consist of: 1 Biomet Vanguard size 67.5 left posterior stabilized femoral component. 2. Biomet size 67 tibial tray. 3. 10 mm posterior stabilized polyethylene insert. 4. 31 x 8 all poly patella. The patient was taken to the op room, identified, placed on the operating table in the supine position. All contact areas were appropriately padded. IV antibiotics fibra anesthesia team. Spinal anesthetic and adductor canal block had been Weida in the holding area. A Andrade catheter was placed in sterile fashion. A left factor was then placed in the left lower extremities then prepped and draped in usual sterile fashion. The left leg was elevated exsanguinated with use of an Esmarch and turn was placed at 300 mmHg. An anterior approach to the left knee was then performed to longitudinal incision centered over the patella. After beginning the incision the patient could obviously feels the sharpness of the knife so a general anesthetic was then implemented. We proceeded with the exposure. A medial parapatellar arthrotomy incision was made. Some subperiosteal dissection was carried out medially. The fat pad was dissected from his patella tendon. Lateral patellofemoral ligament was released. The patella subluxated laterally and the knee was flexed. The osteophytes taken off distal femur. The ACL and PCL were then released from the distal femur the tibia subluxated anteriorly. The external treatment LYMErix then placed on the anterior face the tibia and a djusted 14 mm medially. Proximal tibial cut was made remove out of millimeter bone from the most proximal aspect medial tibial plateau. Tibia sized to a size 67. Some osteophytes taken off medially. Attention drawn the femur. The distal femur was entered with a sharp drill. Intramedullary canal was suction. A left 5 degree valgus cutting guide was placed. The distal femoral cutting block was pinned in place. Distal femoral cut was made take an additional 3 mm of bone off distal femur. The femur was then sized to a size 67.5. The 8 cutting block was pinned parallel to the epicondylar axis which was 5 degrees of external rotation. The anterior cut, anterior chamfer, posterior cut, posterior chamfer cuts were made. The box cutting guide was placed and just slightly laterally. The box cut was made. The knee was flexed. The remnants of the medial and lateral menisci were excised. The osteophytes taken off the posterior aspect the femur. A trial femoral component was placed. The tibial tray was pinned Sima external rotation and the drill and stem punch used to create defect in proximal tibia for the tibial tray. Knee was then trialed and the 10 mm insert fit most appropriately. Attention drawn to the patella. The patella was cleaned of all soft tissues. Patella thickness measured 22 mm in thickness was cut down to 13. Was sized to a size 31 patella. The lug holes were drilled for 31 patella. The knee was taken through range of motion the patella tracked nicely with no thumbs test. Attention was then drawn toward placing the permanent components. All trial components were removed. A bone plug was placed into this femur limit blood loss. Double batch Palacos G cement was mixed. Biomet Vanguard size 67.5 left posterior stabilized femoral component, size 67 tibial tray, a 10 mm posterior Byce polyethylene insert, and a 31 x 8 all poly patella then cemented in place. Knee was brought out in full extension till cement hardened. Final cement check was then performed. The pericapsular tissues were injected with total of 100 cc of Ortho mix. Patient did receive 1 g tranexamic acid. The tourniquet was then let down for final tourniquet time of 54 minutes. Hemostasis assured with electrocautery. Extensor mechanism then closed with combination 1 PDS suture #1 Vicryl suture in a [id number] fashion. Extensor Meclomen checked found be intact and subcutaneous tissues then closed with 2 Dexon suture in buried erupted fashion skin was closed skin pooja. Leg was then cleaned and dried and a sterile dressing with Xeroform, 4 fours, sterile cast padding, Logan bandage were applied. Patient then transferred to the recovery room in stable condition. The patient tolerated the procedure well and there were no complications. Dequan Schneider, my physician assistant professor of drama, was present for the entire procedure. His assistance was essential and required for appropriate patient positioning, prepping and draping, surgical exposure, performing the technical details of the operation, placement the implants, closure of the wound, and placement of the sterile bandage. I attest to the content of the Intraoperative Record and any orders documented therein. Any exceptions are noted below.
[2024-04-04] MEDS: HYDROmorphone INJ 2 MG/ML SYR/VIAL IV PRN (11:16)
--- NOTE | 2024-04-04 11:17 | XRay Report ---
XR knee LT 1 or 2V routine CLINICAL HISTORY: Postoperative evaluation. COMPARISON: Left knee radiographs October 14, 2023. FINDINGS: Alignment of the total left knee arthroplasty is anatomic. There is no periprosthetic frac ture or unexpected radiopaque foreign body. There are skin pooja. IMPRESSION: Expected findings following total left knee arthroplasty. ACT 112: Negative or not required by law. Electronically signed by: Romeo Almendarez M.D. 04/04/2024 11:16 AM
[2024-04-04] MEDS ORDERED: NALOXONE HCL 0.4 MG/1 ML VIAL/CARP IV PRN (13:50)
[2024-04-04] MEDS ORDERED: FUROSEMIDE 20 MG TAB PO PRN (13:50)
[2024-04-04] MEDS ORDERED: PHARMACY GLYCEMIC MGMT CONSULT PRN (13:50)
[2024-04-04] MEDS ORDERED: ALBUTEROL HFA 8 GM INHALER INH PRN (13:50)
[2024-04-04] MEDS ORDERED: KETOROLAC TROMETHAMINE 15 MG/ML VIAL IV SCH (13:50)
--- NOTE | 2024-04-04 14:43 | Pharmacy Report ---
Pharmacy Glycemic Short Note 2 - Date of Service April 04, 2024 - Glycemic Short BSG Results (Last 24 hours): 04/04/24 04/04/24 06:38 11:01 POC Glucose 87 140 H OUTPATIENT ANTIDIABETIC REGIMEN: * metformin ER 500mg BID * HbA1c 5.9% (03/13/24) ASSESSMENT: * Teresa is a 73 YOF admitted status post left total knee arthroplasty with a history of T2DM. Pharmacy has been consulted to assist with glycemic gideon gement while inpatient. * Preoperative BSG this AM below goal range, but acceptable, increased to 140 at lunchtime after preoperative IV dexamethasone 10mg, will give Lantus 0.2 units/kg to cover steroid induced hyperglycemia. Second dose of IV dexamethasone 10mg ordered for tomorrow AM, will continue with the same dose of Lantus and monitor how BSGs trend for adjustments * NovoLog initiated at a weight based stress of 3 based on AdjBW. PLAN FOR INPATIENT GLYCEMIC CONTROL: * Hold outpatient oral diabetes medications * Basal insulin * Lantus 20 units SQ daily x1 now and tomorrow AM with IV dexamethasone * Bolus insulin * NovoLog per scale ACHS or Q6hrs while NPO * Goal Range: Low 110 mg/dL - High 140 mg/dL * Correction Factor: 25 mg/dL/unit * Nutritional / Prandial insulin per carb ratio of 1 unit per 8 grams CHO consumed
[2024-04-04] MEDS: ONDANSETRON INJ 2 MG/ML 2 ML VIAL IV PRN (15:06)
[2024-04-04] MEDS: LANTUS PER UNIT CHARGE SC SCH (15:06)
[2024-04-04] MEDS: INSULIN ASPART PER UNIT CHARGE SC SCH (15:07)
--- NOTE | 2024-04-04 15:10 | Anesthesiology Progress Note ---
Date of Service April 04, 2024 Anesthesia Post Procedure Vital Signs Vital Signs: Temp Pulse Pulse Resp BP Pulse Ox O2 Del Method 04/04/24 12:43 36.4 C L 88 16 109/62 90 Nasal Cannula 04/04/24 12:15 89 12 115/55 L 94 Room Air 04/04/24 12:05 88 12 113/54 L 95 Room Air 04/04/24 11:55 83 12 115/54 L 92 Room Air 04/04/24 11:45 36.7 C 92 H 21 120/58 L 92 Room Air 04/04/24 11:35 86 12 121/58 L 94 Nasal Cannula 04/04/24 11:25 86 13 119/56 L 97 Oxymask 04/04/24 11:15 85 12 93/56 L 100 Oxymask 04/04/24 11:05 89 13 115/56 L 99 Oxymask 04/04/24 10:57 36.3 C L 91 H 12 113/52 L 94 Oxymask 04/04/24 06:52 36.6 C 76 18 132/70 98 Room Air O2 Flow Rate 04/04/24 12:43 2 04/04/24 12:15 0 04/04/24 12:05 0 04/04/24 11:55 0 04/04/24 11:45 0 04/04/24 11:35 4 04/04/24 11:25 6 04/04/24 11:15 8 04/04/24 11:05 8 04/04/24 10:57 8 04/04/24 06:52 Pain Intensity Left Knee: Pain Intensity: 4 Transfer of Care Handoff Completed per policy Notes Mental Status: alert / awake / arousable and participated in evaluation Nausea / Vomiting: adequately controlled Pain: adequately controlled Airway Patency, RR, SpO2: stable & adequate BP & HR: stable & adequate Hydration State: stable & adequate Anesthetic Complications: no major complications apparent and Pt Satisfied with anesthetic care
[2024-04-04] MEDS: ASCORBIC ACID 500 MG TAB PO SCH (17:56)
[2024-04-04] MEDS: TRANEXAMIC ACID / 0.7% NACL 1,000 MG/100 ML BAG IV SCH (17:57)
[2024-04-04] MEDS: ATORVASTATIN 10 MG TAB PO SCH (18:14)
[2024-04-04] MEDS: oxyCODONE HCL IR 5 MG TAB (IMMEDIATE RELEASE) PO PRN (20:37)
[2024-04-04] MEDS: SENNA 8.6 MG TAB PO SCH (20:38)
[2024-04-04] MEDS: DOCUSATE SODIUM 100 MG CAP PO SCH (20:38)
[2024-04-04] MEDS: CHOLECALCIFEROL 25 MCG (1000 UNITS) TAB PO SCH (20:39)
[2024-04-04] MEDS: lisinopril 20 MG TAB PO SCH (20:39)
[2024-04-05 08:22] LABS: Hematocrit (blood only) 33.2 % (37.0-47.0); Hemoglobin 10.6 g/dl (12.0-16.0); Mean Corpuscular Hemoglobin 29.2 pg (25.0-34.0); Mean Corpuscular Hgb Conc 31.9 g/dL (32.0-36.0); Mean Corpuscular Volume 91.5 fL (80.0-100.0); Mean Platelet Volume 9.2 fL (9.4-12.4); Platelet Count 358 K/uL (130-400); RDW Coefficient of Variation 14.6 % (11.5-14.5); RDW Standard Deviation 48.8 fL (36.4-46.3); Red Blood Count 3.63 M/uL (4.20-5.40); White Blood Count 14.13 K/ul (4.8-10.8)
[2024-04-05] MEDS: dexAMETHasone 10 MG in SYRINGE 0 ML IV SCH (08:32)
[2024-04-05] MEDS: LANTUS PER UNIT CHARGE SC SCH (08:33)
[2024-04-05] MEDS: CALCIUM 600MG + VIT D 400 IU TAB PO SCH (08:34)
[2024-04-05] MEDS: FERROUS SULFATE 325 MG TAB PO SCH (08:34)
[2024-04-05] MEDS: MULTIVITAMIN TAB PO SCH (08:35)
[2024-04-05 08:40] LABS: BUN Creatinine Ratio 17.7 (10-20); Calcium 9.3 mg/dl (8.6-10.3); Creatinine Clr Calc Pharmacy 45.7 ml/min; Potassium 4.7 mmol/L (3.5-5.1)
--- NOTE | 2024-04-05 08:56 | Orthopedic Progress Note ---
Date of Service April 05, 2024 Assessment & Plan (1) Status post left knee replacement: Plan: 73-year-old female postop day 1 from left knee replacement doing pretty well. Pains been well-controlled. She is neurologically intact. She is hoping to rehab as she lives alone. Plan: 1. DVT prophylaxis including thigh-high teds, SCDs, and Xarelto for 30 days. 2. PT/OT. Weight-bear as tolerated left total knee protocol. 3. Pain control doing okay with current pain regimen. 4. Disposition. She is hoping go to rehab or snf facility for a brief stay until she is able to get around safely. (2) Lumbar radiculopathy: (3) Depression with anxiety: (4) Venous insufficiency (chronic) (peripheral): Admission and Anticipated Discharge Date Admission Date: April 04, 2024 Subjective 73-year-old female postop day 1 from a left knee replacement. She is doing quite well this morning. Really denies any significant pain in the knee. Had a pretty good night. She is hoping to go to a rehab. Physical Exam Physical Exam: Physical examination is a pleasant middle-age female. That she is lying in bed looks quite comfortable this morning. Examination of the left leg reveals a dressing be clean dry and intact. Leg is well aligned. Can dorsiflex and plantarflex her foot appropriately. She is neurologically intact. Respiratory: normal respiratory effort, lungs clear to auscultation Cardiovascular: RRR, no murmur, no edema Results & Data Vital Signs (Past 12 Hours) Vital Signs Temp Pulse Resp BP Pulse Ox O2 Del Method O2 Flow Rate 04/05/24 08:04 36.3 C L 56 L 18 106/66 98 Nasal Cannula 2 04/05/24 03:22 36.4 C L 61 16 105/66 99 Nasal Cannula 04/04/24 23:00 36.5 C 71 16 112/66 96 Nasal Cannula 2 Laboratory Results Hemoglobin is 10.6. Hematocrit is 33.2. Electrolytes are stable.
[2024-04-05] MEDS ORDERED: NON-FORMULARY MEDICATION (Multivitamin Tablet) PO SCH (09:00)
[2024-04-05] MEDS ORDERED: BIOTIN PO SCH (09:00)
[2024-04-05] MEDS: HYDROmorphone INJ 0.5 MG/0.5 ML SYR IV PRN (11:30)
[2024-04-05] MEDS: METOCLOPRAMIDE HCL INJ 5 MG/ML 2 ML VIAL IV PRN (11:30)
[2024-04-05] MEDS: RIVAROXABAN 10 MG TABLET PO SCH (11:31)
--- NOTE | 2024-04-05 12:39 | Pharmacy Report ---
Pharmacy Glycemic Short Note 2 - Date of Service April 05, 2024 - Glycemic Short BSG Results (Last 24 hours): 04/04/24 04/04/24 04/05/24 16:34 20:18 07:43 Glucose POC Glucose 153 H 148 H 98 04/05/24 04/05/24 07:48 11:35 Glucose 90 POC Glucose 126 H OUTPATIENT ANTIDIABETIC REGIMEN: * metformin ER 500mg BID * HbA1c 5.9% (03/13/24) ASSESSMENT: 04/05 * Patient received total of 25 units insulin yesterday, of which 20 units were basal insulin to cover steroids * Fasting BSG 98 mg/dL - will scale back to 15 units of basal insulin to help cover ongoing steroids today * Steroids stopping after today, potentially loosen parameters tomorrow 04/04 * Teresa is a 73 YOF admitted status post left total knee arthroplasty with a history of T2DM. Pharmacy has been consulted to assist with glycemic management while inpatient. * Preoperative BSG this AM below goal range, but acceptable, increased to 140 at lunchtime after preoperative IV dexamethasone 10mg, will give Lantus 0.2 units/kg to cover steroid induced hyperglycemia. Second dose of IV dexamethasone 10mg ordered for tomorrow AM, will continue with the same dose of Lantus and monitor how BSGs trend for adjustments * NovoLog initiated at a weight based stress of 3 based on AdjBW. PLAN FOR INPATIENT GLYCEMIC CONTROL: * Hold outpatient oral diabetes medications * Basal insulin * Lantus 15 units x 1 with IV dexamethasone today * Bolus insulin * NovoLog per scale ACHS or Q6hrs while NPO * Goal Range: Low 110 mg/dL - High 140 mg/dL * Correction Factor: 25 mg/dL/unit * Nutritional / Prandial insulin per carb ratio of 1 unit per 8 grams CHO consumed
--- NOTE | 2024-04-06 07:21 | Orthopedic Progress Note ---
Date of Service April 06, 2024 Assessment & Plan (1) Status post left knee replacement: Plan: 73-year-old female postop day 2 from a left knee replacement doing okay. Bit more pain today but nothing out of the ordinary. She is neurologically intact. She is looking to go to [facility]. Plan: 1. DVT prophylaxis. Thigh-high teds, SCDs, and back on Xarelto. 2. PT OT. Weight-bear as tolerated. Left total knee protocol. 3. Pain control doing okay with current pain regimen. 4. Disposition. Plan is to discharge to [facility] likely today. Admission and Anticipated Discharge Date Admission Date: April 04, 2024 Subjective 73-year-old female postop day 2 from a left knee replacement. Having a good bit more pain this morning. No other real complaints. No chest pain or shortness of breath. Not feeling dizzy or lightheaded. Physical Exam Physical Exam: Physical nation was a pleasant elderly female. As she is lying bed looks pretty comfortable. Examination of the left leg reveals leg to be well aligned. She can dorsiflex and plantarflex her foot appropriately. Dressings clean dry and intact. She is neurologically intact. Results & Data Vital Signs (Past 12 Hours) Vital Signs Temp Resp BP Pulse Ox O2 Del Method 04/05/24 20:49 36.6 C 16 144/82 H 94 Room Air
[2024-04-06 08:27] VITALS: RESP 18
[2024-04-06] MEDS: metFORMIN HCL ER 500 MG TABCR PO SCH (09:17)
--- NOTE | 2024-04-07 07:34 | Orthopedic Progress Note ---
Date of Service April 07, 2024 Assessment & Plan (1) Status post left knee replacement: Plan: 73-year-old female postop day 3 from left knee replacement doing okay. She is pretty bothered by the fact that she is having trouble lifting her leg which is not unusual at this point. Having some pain but not out of the ordinary. She is neurologically intact. Will just really wait for placement. Plan: 1. DVT prophylaxis including Thiede teds, SCDs, Xarelto. 2. PT/OT. Weight-bear as tolerated. Left total knee protocol. 3. Pain control doing okay with current pain regimen. 4. Disposition. We just waiting for placement. She is hoping go to [facility]. She lives by herself and I do not feel at this point she is safe to be at home on her own. Admission and Anticipated Discharge Date Admission Date: April 06, 2024 Subjective 73-year-old female postop day 3 from a left knee replacement. She is doing okay. A little bit teary eyed this morning as she is having trouble lifting her leg. Moderate amount of pain. No chest pain or shortness of breath. Not feeling dizzy or lightheaded. Physical Exam Physical Exam: 3 examination is a pleasant somewhat emo tionally laden female less than about her bedside chair. She looks pretty comfortable but little bit teary. Examination of the knee reveals the dressing be clean dry and intact. She can dorsiflex and plantarflex her foot appropriately. She struggles doing a st raight leg raise. Results & Data Vital Signs (Past 12 Hours) Vital Signs Temp Pulse Resp BP Pulse Ox O2 Del Method 04/06/24 20:52 36.4 C L 94 H 18 109/72 94 Room Air
[2024-04-07] MEDS: ALUMINUM/MAGNESIUM SUSP 30 ML UDC PO PRN (17:21)
[2024-04-07] MEDS: MAGNESIUM HYDROXIDE SUSP 30 ML UDC PO PRN (17:25)
[2024-04-07] MEDS: bisacodyL 10 MG SUPP PR PRN (21:43)
[2024-04-08 07:25] VITALS: BP 137/80; PULSE 98; TEMP 98.2; O2SAT 92
--- NOTE | 2024-04-08 08:00 | Orthopedic Progress Note ---
Date of Service April 08, 2024 Assessment & Plan (1) Status post left knee replacement: Plan: 73-year-old female with multiple medical comorbidities postop day 4 from a left knee replacement. She is doing reasonably well. Get a little bit better every day. Pains controlled. She is neurologically intact. She she is hoping to go to snf facility but got denied. Very difficult situation as this is suboptimal. Patient lives by herself and does not level family help around. She has been inappropriately denied by her insurance company. Plan: 1. DVT prophylaxis including Thiede teds, SCDs, Xarelto. 2. PT/OT. Weight-bear as tolerated. Left total knee protocol. 3. Pain control. Doing okay with current pain regimen. 4. Disposition. Plan to discharge to home likely today with home health if she does okay in therapy. Admission and Anticipated Discharge Date Admission Date: April 06, 2024 Subjective 73-year-old female postop day 4 from a left total knee replacement. She is doing a bit better this morning. A little more optimistic. Therapy went well. Pain seems to be under little bit better control. She was hoping to go to snf facility but got denied. She is now going to go home with some home health. Not ideal by any sense as she lives by herself. Physical Exam Physical Exam: Physical nation is a pleasant elderly female. She is sitting up in her bedside chair looks comfortable. Very optimistic this morning. Examination of left leg reveals the dressing be clean dry and intact. She can dorsiflex and plantarflex her foot appropriately. She is neurologically intact. Results & Data Vital Signs (Past 12 Hours) Vital Signs Temp Pulse Resp BP Pulse Ox O2 Del Method 04/08/24 07:24 36.8 C 98 H 18 137/80 92 Room Air 04/07/24 20:30 37.0 C 101 H 18 118/75 95 Room Air
--- NOTE | 2024-04-11 10:09 | Discharge Summary ---
Date of Service April 11, 2024 Admission HPI (Per Admitting) . The patient is a 73-year-old female who lives by herself and presents for surgical treatment of her left knee. She is referred by Dr. Mejía. She had a known history of left knee arthritis and described to gotten worse over time. She been through extensive conservative treatment which would become less successful. The last steroid and possibly have not helped much at all. Pain is mostly medial. She is having difficulty living by herself and staying active due to her knee pain. She would like. Admission Exam (Per Admitting) . Physical examination reveals a pleasant elderly female. Looks to be in reasonably good health. Examination of left knee reveals patient walks with an antalgic gait. She got slight varus alignment to her knee. Moderate soft tissue envelope. She is tender over the medial joint line. Small knee effusion. Range of motion about 5-1 20. No instability. No particular pain with hip motion. She is neurologically intact. Principal Diagnosis Same as "Discharge Diagnosis" noted below under Discharge Instructions. Discharge Data Procedures Performed Operation Date: 04/04/24 08:50 Actual Procedures p Left Total Knee Arthroplasty(Left) - Fidel Bai MD Ordered Studies 04/04/24 05:00 US - OR guided needle placemen Routine Hospital Course (1) Status post left knee replacement: This is a 73 year old patient admitted on 04/04/24 and underwent total knee arthroplasty. She tolerated the procedure well and there were no complications. Transferred to the PACU post op and later to the orthopedic floor for further care. She was given ancef for antibiotic prophylaxis. She was also given NEMESIO stockings, SCDs, and xarelto for DVT prophylaxis. Hemoglobin, hematocrit, and vital signs were monitored during her hospital stay and remained stable. Did not require any blood transfusions. There were no complications during her hospital stay. By post op day #4 the patient was tolerating a diabetic diet, pain was reasonably controlled with oral pain medicine, and she was participating in physical therapy. On post op day #4 the patient was discharged home and set up with home health care as her insurance had denied senior living or rehab. She was given printed discharge instructions including prescriptions for extra strength tylenol, xarelto, oxycodone, zofran, and senokot. Continue physical therapy, weight bearing as tolerated. Continue NEMESIO stockings. Follow up approximately 2 weeks post op or sooner if there are problems or concerns. Discharge Plan Discharge Items Patient Disposition: Home - Home Health Services Reason For Visit: Left Knee Osteoarthritis Discharge Diagnosis: Left Knee Replacement Activity: Per Instructions section Weightbearing: Full weightbearing Non-emergency contact: Surgeon Call non-emergency contact if: you have any medication questions Follow-up/Referrals: Sarahi Laguna, [Primary Care Provider] - Diet: Carb Consistent or DM2 Addtl Attending Provider Instructions: ACTIVITY RECOMMENDATIONS: Diet: * You may resume previous diet. Physical Therapy: * You will go to physical therapy three times each week for four to six weeks after your surgery in order to regain your knee range of motion and to retrain your knee to work properly. * It is just as important to make sure you are getting your knee perfectly straight as it is to regain your knee bend. * Taking a pain pill an hour before therapy can help you have a more productive and comfortable therapy session. Home Exercise: * You were shown a series of exercises (heel props, heel slides, etc.) in the hospital. Do these exercises three to four times each day including the exercises you were shown in physical therapy. Walking: * Get up and walk several times each day. For the first four weeks, try not to stand or walk for more than one hour at a time. If you do stand or walk for more than one hour, you will not hurt anything, but your knee and leg will likely swell. * As you feel comfortable, you may change from the walker or crutches to a cane and then to independent walking. MEDICATIONS: New Medicine: * You will likely be taking one or more of these medications: 1. Oxycodone - A quick and shorter-acting pain medication. Take one to two tablets every six hours to lessen your pain. 2. Xarelto - Thins your blood to lessen the chance of forming a blood clot. * The most common side effects of pain medicine and iron are nausea and constipation. If nausea or constipation is too much of a problem or if you have any questions about your new medicines or doses, call [facility] at . We will try to help you manage these issues. "VERY IMPORTANT TO READ AND REVIEW" Pain: * The immediate post-operative period after knee replacement surgery is often quite painful. * You are given a prescription for pain medicine. You should take it, as directed, when you need it, especially before physical therapy and before going to bed. Pain that interferes with sleep is very common and can last several months. * You will likely need pain medicine for the first four to six weeks. It will not stop all of the pain. The pain will lessen and as you feel better, you may change to milder pain medicine such as Tylenol. * The most common side effects of pain medicine are nausea and constipation, so don't take more than you need. SPECIAL CARE INSTRUCTIONS: TEDs/Elastic Stockings: * The white elastic stockings help limit swelling and prevent blood clots from forming in your legs. The more you wear them, the more they work. * Wear them for six weeks after knee replacement surgery and four weeks after partial knee replacement. Incision Site Care: * Remove dressing postoperative day 2 and then shower. Keep direct shower pressure off the incision site. * After showering, cover pooja with dry gauze and change daily or more frequently if the dressing is getting saturated with drainage. * Use the NEMESIO stockings to hold dressing in place. DO NOT apply tape on the skin. * May completely stop using bandage if wound is dry and no drainage * Pooja are removed between 2 and 3 weeks post-op. If your follow-up appointment is made before 2 weeks, please have your appointment re- scheduled. It is too early to remove the pooja. Prevention of Infection: * Take antibiotics one hour before any dental cleaning, dental work, urological procedure, gastrointestinal procedure or any invasive surgery in order to prevent your new joint from getting infected. * You may get the antibiotics from the doctor performing the procedure or you may call our office at [phone] before and we will call in a prescription to the pharmacy of your choice. Things to Watch For: * Drainage from the incision site that occurs more than one week after your surgery. * Severely increased knee/leg pain or swelling. * Increased redness at the incision site. * Fever above 102 degrees Fahrenheit. * Unusual chest pain or shortness of breath. * Unusual pain or burning with urination. Call [facility] at [phone] with any of the above problems or if you have any questions about your medicines or recovery. FOLLOW UP VISIT: Make an appointment to see your doctor for approximately two weeks after surgery for a progress check and staple removal by calling the office at [phone]. Pending Studies at Discharge: No Stand-Alone Forms: My [facility], Smoking Cessation Medications and DC Order Prescriptions: New sennosides-docusate sodium [Senokot-S] 8.6-50 mg tablet 1 tab-cap PO BID 14 Days Qty: 28 0RF Rx Instructions: Take to prevent constipation. ondansetron 4 mg tablet,disintegrating 4 mg PO Q8H PRN (Reason: nausea and vomiting) 14 Days Qty: 30 0RF Rx Instructions: Take as needed for Nausea Continued metformin 500 mg tablet extended release 24 hr 500 mg PO BID Qty: 180 1RF atorvastatin 10 mg tablet 10 mg PO 3XWK Qty: 36 3RF Rx Instructions: TAKE THIS MED EVERY TUESDAY/TUESDAY/TUESDAY @ 1800 ferrous sulfate [Feosol] 325 mg (65 mg iron) tablet 325 mg PO DAILY albuterol sulfate [Ventolin HFA] 90 mcg/actuation HFA aerosol inhaler 2 puff inhalation Q4 PRN (Reason: shortness of breath or wheezing) Qty: 54 1RF calcium carbonate-vitamin D3 600 mg(1,500mg) -200 unit tablet 1 tab PO QAM cholecalciferol (vitamin D3) [Vitamin D3] 1,000 unit capsule 1,000 unit PO QPM (DME) blood-glucose meter [FreeStyle Lite Meter] Kit See Rx Instructions .Route Qty: 1 0RF Rx Instructions: Test once daily (DME) FreeStyle Lite Strips Strip See Rx Instructions .Route Qty: 100 1RF Rx Instructions: Test once daily multivitamin Tablet 1 tab PO QAM lisinopril 20 mg tablet 20 mg PO QPM furosemide [Lasix] 20 mg tablet 20 mg PO DAILY PRN (Reason: Edema) Biotin Gummy 2 gummy PO DAILY No Action acetaminophen [Tylenol Extra Strength] 500 mg tablet 1,000 mg PO Q8 30 Days Qty: 180 0RF Rx Instructions: Take 3 times per day to lessen pain. oxycodone 5 mg tablet 5 - 10 mg PO Q6H PRN (Reason: pain) Qty: 40 0RF Rx Instructions: Take as needed for Pain Xarelto 10 mg tablet 10 mg PO DAILY 30 Days Qty: 30 0RF Rx Instructions: Take to prevent blood clots. Discharge Orders: Discharge Order (Routine); Ordered 04/08/24 Ordered By: Fidel Renner/Other Patient Handouts: Knee Replace Home Recovery, Knee Replace Home Exercise Admission Data Admit Date/Time: 04/04/24 10:55 Attending Provider: Fidel Bai Admit Provider: Fidel Bai Primary Care Provider: Sarahi Laguna Other Providers: [facility]; [facility] Other Interventions: Discharge Summary Assessment (RN) Last Done: 04/06/24 11:06
== END 2024-04-08 11:30 | disposition home health service (06) | DRG 470 ==
LOC: ASU 06:15 → 3W 06:15
DX: K21.9 Gastro-esophageal reflux disease without esophagitis; I12.9 Hypertensive chronic kidney disease with stage 1 through stage 4 chronic kidney disease, or unspecified chronic kidney disease; Z79.899 Other long term (current) drug therapy; Z88.6 Allergy status to analgesic agent; M54.16 Radiculopathy, lumbar region; I45.10 Unspecified right bundle-branch block; F32.A Depression, unspecified; E11.22 Type 2 diabetes mellitus with diabetic chronic kidney disease; E88.810 Metabolic syndrome; E78.5 Hyperlipidemia, unspecified; M17.12 Unilateral primary osteoarthritis, left knee; I87.2 Venous insufficiency (chronic) (peripheral); F41.9 Anxiety disorder, unspecified; K76.0 Fatty (change of) liver, not elsewhere classified; N18.30 Chronic kidney disease, stage 3 unspecified; J45.909 Unspecified asthma, uncomplicated; Z79.84 Long term (current) use of oral hypoglycemic drugs